=== PATIENT | female | born 1940 | race Caucasian/White ===

== ENCOUNTER 2017-03-08 12:27 | Emergency (ER) | payer MEDICARE, BC ==
[2017-03-08] MEDS ORDERED: ACETAMINOPHEN TAB 325 MG TAB PO STA (12:41)
--- NOTE | 2017-03-08 12:46 | ED ---
Fall HPI <Cr Austin - Last Filed: 03/08/17 14:40> - General Source: patient Mode of arrival: wheelchair <Lisa Alexandra - Last Filed: 03/08/17 16:28> - General Chief Complaint: Fall Stated Complaint: Fall/Wrist Injury Time Seen by Provider: 03/08/17 12:35 - History of Present Illness Initial Comments: 76-year-old female patient presents to the emergency department today for evaluation of right wrist injury after a slip and fall accident. Patient states around 9:30 this morning she was putting her groceries in the trunk when she slipped on the ice and fell forward on her outstretched hand. Patient states that since then she has been having pain and swelling to the right wrist. She states she did take an aspirin for pain this morning however has not helped very much. She denies hitting her head or losing consciousness with the fall. She denies any neck or back pain. She denies any other injuries. She denies any use of anticoagulant medications. Patient denies any headache, chest pain, shortness of breath, dizziness, weakness, abdominal pain, nausea, vomiting, or difficulties with bowel movements or urination. Patient is right- handed. (Lisa Alexandra) - Related Data Home Medications Medication Instructions Recorded Confirmed Atorvastatin [Lipitor] 10 mg PO DAILY 03/08/17 03/08/17 Previous Rx's Medication Instructions Recorded Acetaminophen-Codeine 300-30mg 1 tab PO Q6H PRN #20 tablet 03/08/17 [Tylenol #3] Allergies Allergy/AdvReac Type Severity Reaction Status Date / Time No Known Allergies Allergy Verified 03/08/17 14:16 Review of Systems ROS Other: All systems not noted in ROS Statement are negative. <Cr Austin - Last Filed: 03/08/17 14:40> ROS Other: All systems not noted in ROS Statement are negative. <Lisa Alexandra - Last Filed: 03/08/17 16:28> ROS Statement: Those systems with pertinent positive or pertinent negative responses have been documented in the HPI. Past Medical History Past Medical History: Hyperlipidemia History of Any Multi-Drug Resistant Organisms: None Reported Past Surgical History: Hysterectomy Past Psychological History: No Psychological Hx Reported Smoking Status: Current every day smoker Past Alcohol Use History: None Reported Past Drug Use History: None Reported <IbrahimaLisa M - Last Filed: 03/08/17 16:28> General Exam Limitations: no limitations General appearance: alert, in no apparent distress, other (This is a well- developed, well-nourished elderly female patient in no acute distress. Vital signs upon presentation were temperature 97.0F, pulse 73, respirations 18, blood pressure 102/56, pulse ox 98% on room air.) Head exam: Present: atraumatic, normocephalic, normal inspection Eye exam: Present: normal appearance, PERRL, EOMI. Absent: scleral icterus, conjunctival injection, nystagmus, periorbital swelling ENT exam: Present: normal exam, normal oropharynx, mucous membranes moist Neck exam: Present: normal inspection, full ROM, other (Nontender, no step-off, no deformity to firm midline palpation of the posterior cervical spine. Full range of motion without pain or limitation.). Absent: tenderness, meningismus, lymphadenopathy Respiratory exam: Present: normal lung sounds bilaterally. Absent: respiratory distress, wheezes, rales, rhonchi, stridor Cardiovascular Exam: Present: regular rate, normal rhythm, normal heart sounds, other (Murmur). Absent: systolic murmur, diastolic murmur, rubs, gallop, clicks GI/Abdominal exam: Present: soft, normal bowel sounds. Absent: distended, tenderness, guarding, rebound, rigid Extremities exam: Present: tenderness (Tenderness over the medial and lateral aspects of the right wrist. Tenderness over AC joint and the right shoulder.), normal capillary refill, joint swelling (Right wrist swelling), other (There is swelling and mild deformity of the right wrist. Skin to the right upper extremity is pink, warm, and dry. Cap refills less than 3 seconds. Radial pulses 2+ and equal bilaterally.). Absent: normal inspection, full ROM ( Decreased range of motion of the right wrist due to increased pain with movement. Full range of motion of the right elbow intact. Full range of motion of the right shoulder intact.), pedal edema, calf tenderness Back exam: Present: normal inspection, other (Nontender, no step-off, no deformity to firm midline palpation of the thoracic and lumbar vertebrae. Full range of motion without pain or limitation.). Absent: vertebral tenderness Neurological exam: Present: alert, oriented X3, CN II-XII intact Psychiatric exam: Present: normal affect, normal mood Skin exam: Present: warm, dry, intact, normal color. Absent: rash <Lisa Alexandra - Last Filed: 03/08/17 16:28> Vital Signs 03/08/17 03/08/17 03/08/17 12:27 14:30 14:45 Temperature 97.0 F L Pulse Rate 73 85 83 Respiratory 18 20 20 Rate Blood Pressure 102/56 155/70 144/69 O2 Sat by Pulse 98 100 100 Oximetry 03/08/17 03/08/17 15:00 15:35 Temperature 97.8 F Pulse Rate 82 85 Respiratory 18 18 Rate Blood Pressure 149/67 145/68 O2 Sat by Pulse 99 98 Oximetry Procedures - Orthopedic Fracture Reduction Fracture #1 Consent Obtained: written consent Time Out Performed: Yes Side: right Fracture Reduction Location: radius Analgesia: procedural sedation Technique: traction/counter-traction Post Reduction X-rays Demonstrate: anatomical reduction Post-Reduction Neuro Exam: intact Post-Reduction Vascular Exam: intact Splint Applied: Yes Patient Tolerated Procedure: well - Orthopedic Splinting/Casting Injury #1 Side: right Upper Extremity Injury Location: short arm, wrist Upper Extremity Immobilizer: volar splint, synthetic pre-padded splint - Procedural Sedation Procedural Sedation Start Time: 14:25 Procedural Sedation Stop Time: 14:50 Indications: fracture/dislocation reduction ASA Class: I Preparation: cardiac surgeon applied, pulse oximeter, supplemental O2 applied IV Etomidate Dose (mgs): 10 Complications: none Interventions: oxygen applied Patient Tolerated Procedure: well <Cr Austin - Last Filed: 03/08/17 14:40> Medical Decision Making <Cr Austin - Last Filed: 03/08/17 14:40> - Radiology Data Radiology results: report reviewed, image reviewed <Lisa Alexandra - Last Filed: 03/08/17 16:28> - Medical Decision Making 76-year-old female patient presented to the emergency department today for evaluation of right wrist pain after a open fall accident. Physical examination revealed mild deformity and swelling to the right wrist. Patient is also complaining of some right shoulder discomfort. Distal pulses are intact. Neurovascular status intact. Patient denied any head neck or back pain , and was neurologically intact. She denied use of anticoagulants. X-ray of the right wrist did show a comminuted intra-articular fracture of the distal radius with some displacement of the ulna. I did call and speak to Jaiden at [facility] who instructed us to perform closed reduction of the wrist and to have her follow-up in the office next week. X-ray of the right shoulder was negative. Conscious sedation with closed reduction was performed. Repeat x-rays show good alignment and positioning. Patient tolerated the procedure well. She'll be discharged home at this time with pain medication. Instructions regarding splint care. Instructions regarding icing and elevation. She is instructed to follow-up with orthopedics as soon as possible. She is instructed to return here immediately for any new, worsening, or concerning symptoms. She verbalizes understanding and agrees with this plan. (Lisa Alexandra) - Radiology Data 3 views of the right wrist are obtained and show the osseous structures are demineralized as noted to lower radiographic sensitivity. There is acute comminuted impacted intra-articular fracture distal radial epiphysis. There is abnormal dorsal angulation of the distal fracture fragments. Adjacent ulna shows no additional fracture. Positive ulnar variance is present. There is joint space loss scapholunate joint and trapezoid as well as the base of the first metacarpal with sclerosis. Moderate soft tissue swelling along the radial and volar surfaces noted. Impression by Dr. Huntley shows acute slightly displaced intra-articular comminuted fracture distal radial medical epiphysis. 3 views of the right shoulder obtained and showed no acute fracture dislocation evident. Osseous structures are demineralized. Bursal and capsular calcification acromioclavicular joint is present. Subchondral cystic change superolateral humeral head as noted. The visualized ribs are intact unremarkable. Impression by Dr. Huntley shows no acute fracture dislocation right shoulder. 2 views of the right wrist are obtained for postreduction imaging. There is demineralization redemonstrated. Cast material seen which is noted to lower radiographic sensitivity. There is improved alignment after closed reduction of distal radial med epiphyseal intra-articular fracture. There is improved alignment of the radial ulnar joint after reduction and casting. Soft tissue swelling redemonstrated. Impression by Dr. Huntley shows improved positioning after reduction and casting. (Lisa Alexandra) Disposition <Cr Austin - Last Filed: 03/08/17 14:40> Time of Disposition: 15:18 <Lisa Alexandra - Last Filed: 03/08/17 16:28> Clinical Impression: Fracture of radius, distal, right, closed Disposition: HOME SELF-CARE Condition: Good Instructions: Wrist Fracture in Adults (ED), Procedural Sedation (ED) Additional Instructions: Keep splint in place until follow-up with orthopedics. Rest, ice, and elevate the right arm. Take medications as needed for pain control. Follow-up with the orthopedic physician as soon as possible. Return here immediately for any new, worsening, or concerning symptoms. Prescriptions: Acetaminophen-Codeine 300-30mg [Tylenol #3] 1 tab PO Q6H PRN #20 tablet PRN Reason: Pain Referrals: Verito Middleton III, MD [Primary Care Provider] - 1-2 days Abhi Garland MD [STAFF PHYSICIAN] - 1-2 days
--- NOTE | 2017-03-08 13:16 | XR ---
EXAMINATION TYPE: XR shoulder complete RT DATE OF EXAM: 03/08/2017 CLINICAL HISTORY: Right shoulder pain after fall injury this morning. TECHNIQUE: Three views of the right shoulder are obtained. COMPARISON: None. FINDINGS: There is no acute fracture/dislocation evident in the right shoulder. Osseous structures a re demineralized. Bursal or capsular calcification acromioclavicular joint is present. Subchondral c ystic change superolateral humeral head is noted. The visualized ribs are intact and unremarkable. IMPRESSION: There is no acute fracture or dislocation in the right shoulder.
--- NOTE | 2017-03-08 13:18 | XR ---
EXAMINATION TYPE: XR wrist complete RT DATE OF EXAM: 03/08/2017 CLINICAL HISTORY: Fall injury with right wrist pain. TECHNIQUE: Frontal, lateral and oblique images of the right wrist are obtained. COMPARISON: None FINDINGS: Osseous structures are demineralized which is noted to lower radiographic sensitivity. Ther e is acute comminuted impacted intra-articular fracture distal radial meta-epiphysis. There is abnorm al dorsal angulation of distal fracture fragments. Adjacent ulna shows no additional fracture. Positi ve ulnar variance is present. There is joint space loss scapholunate joint and days of trapezoid as w ell as base of first metacarpal with sclerosis. Moderate soft tissue swelling along radial and volar surfaces noted. IMPRESSION: There is acute slightly displaced intra-articular comminuted fracture distal radial meta -epiphysis. (Initial encounter closed type post traumatic fracture)
[2017-03-08] MEDS ORDERED: ETOMIDATE 2 MG/ML 10 ML VIAL IVP STA (14:00)
--- NOTE | 2017-03-08 14:50 | XR ---
EXAMINATION TYPE: XR wrist limited RT DATE OF EXAM: 03/08/2017 CLINICAL HISTORY: Postreduction of displaced right wrist fracture. TECHNIQUE: Frontal and lateral images of the right wrist are obtained. COMPARISON: Right wrist x-ray earlier today. FINDINGS: There is demineralization redemonstrated. New fiberglass cast material is seen which is no margie lower radiographic sensitivity. There is improved alignment after closed reduction internal fixat ion of distal radial meta-epiphyseal intra-articular fracture. There is improved alignment radial uln ar joint after reduction and casting. Soft tissue swelling redemonstrated. IMPRESSION: There is improved positioning after reduction and casting.
[2017-03-08 15:03] VITALS: RESP 18
[2017-03-08] MEDS ORDERED: MORPHINE SULFATE 5 MG/ML SYRINGE IVP STA (15:03)
[2017-03-08 15:39] VITALS: BP 145/68; PULSE 85; TEMP 97.8
== END 2017-03-08 15:41 | disposition home or self-care (01) ==
LOC: EC 12:27
DX: S52.501A Unspecified fracture of the lower end of right radius, initial encounter for closed fracture (principal); S63.074A Dislocation of distal end of right ulna, initial encounter; M25.811 Other specified joint disorders, right shoulder; M25.841 Other specified joint disorders, right hand; M94.8X8 Other specified disorders of cartilage, other site; E78.5 Hyperlipidemia, unspecified; F17.200 Nicotine dependence, unspecified, uncomplicated; Z79.899 Other long term (current) drug therapy; W00.0XXA Fall on same level due to ice and snow, initial encounter; Y93.89 Activity, other specified
CPT/HCPCS: 73030; 73100; 73110; 99283; 25605; 99152; 99153; 96374; J2274

== ENCOUNTER 2018-01-27 21:00 | Inpatient (IN) | payer MEDICARE, BC ==
[2018-01-27] MEDS ORDERED: SODIUM CHLORIDE 0.9% 1,000 ML IV STA ×2 (21:47→22:33)
--- NOTE | 2018-01-27 21:47 | ED ---
General Adult HPI - General Chief complaint: Weakness Stated complaint: POSS STROKE Source: patient, family Mode of arrival: wheelchair Limitations: no limitations - History of Present Illness Initial comments: Dictation was produced using [employer] dictation software. please excuse any grammatical, word or spelling errors. Chief Complaint: 77-year-old female presents with multiple episodes of syncope. History of Present Illness: 77-year-old female with past medical history right carotid endarterectomy and carotid stenosis presents with multiple episodes of syncope in the last 2-3 days. Patient is accompanied by family member who states that she had a proximally 5 episodes of syncope. Patient denies any head trauma. Patient states that she syncopized is when she stands. Patient denies any medications except for Lipitor which her primary care physician prescribes her. Patient denies any neurologic deficits at this time. States that she was fine when at rest however she gets up she becomes symptomatic. She does state she feels slightly lightheaded before these episodes of syncope. The ROS documented in this emergency department record has been reviewed and confirmed by me. Those systems with pertinent positive or negative responses have been documented in the HPI. All other systems are other negative and/or noncontributory. - Related Data Home Medications Medication Instructions Recorded Confirmed Atorvastatin [Lipitor] 10 mg PO DAILY 03/08/17 01/27/18 Allergies Allergy/AdvReac Type Severity Reaction Status Date / Time No Known Allergies Allergy Verified 01/27/18 22:13 Review of Systems ROS Statement: Those systems with pertinent positive or pertinent negative responses have been documented in the HPI. ROS Other: All systems not noted in ROS Statement are negative. Past Medical History Past Medical History: Hyperlipidemia History of Any Multi-Drug Resistant Organisms: None Reported Past Surgical History: Hysterectomy Past Psychological History: No Psychological Hx Reported Smoking Status: Current every day smoker Past Alcohol Use History: None Reported Past Drug Use History: None Reported General Exam - General Exam Comments Initial Comments: PHYSICAL EXAM: General Impression: Alert and oriented x3, not in acute distress HEENT: Normocephalic atraumatic, extra-ocular movements intact, pupils equal and reactive to light bilaterally, mucous membranes moist. Cardiovascular: Heart regular rate and rhythm, S1&S2 audible, no murmurs, rubs or gallops Chest: Lungs clear to auscultation bilaterally, no rhonchi, no wheeze, no rales Abdomen: Bowel sounds present, abdomen soft, non-tender, non-distended, no organomegaly Musculoskeletal: Pulses present and equal in all extremities, no peripheral edema Motor: Power 5/5 bilaterally, no focal deficits noted Neurological: CN II-XII grossly intact, no focal motor or sensory deficits noted Skin: Intact with no visualized rashes Psych: Normal affect and mood Limitations: no limitations Course Vital Signs 01/27/18 01/27/18 21:03 23:23 Temperature 97.9 F 97.9 F Pulse Rate 83 85 Respiratory 18 18 Rate Blood Pressure 76/45 99/60 O2 Sat by Pulse 92 L 98 Oximetry Medical Decision Making - Medical Decision Making ED course: 89-year-old female with past medical history of carotid stenosis. She had carotid endarterectomy on the right side. She states she does have history of disease on the left carotid artery. Vital signs upon arrival shows blood pressure 76/45. Patient's blood pressure improved after intravenous fluids.Laboratory evaluation obtained. It is leukocytosis of 24.0. Hemoglobin of 7.1, thrombocytosis of 619. Coag panel is unremarkable. Metabolic panel shows lactic acidosis of 2.6. Rest of metabolic panel is grossly unremarkable. Patient has troponin level of 0.069. Urinalysis is negative. At this point patient not have any complaints to suggest infectious etiology. Given episodes of syncope patient's leukocytosis may be secondary to stress. There is strong suspicion that patient experience tachycardia dysrhythmia causing syncope. Given elevated troponin patient started on heparin. Patient given 1 g of magnesium for prolonged QT however she did have normal magnesium level. Rest of the electrolytes were unremarkable. Pending blood cultures and urine cultures. At this point there is no clear indication for antibiotic administration. We'll admit patient to telemetry. At this point there is no clear etiology of patient's prolonged QT. Patient is not hypomagnesemic. She is not on any QT prolonging medications. We will place cardiology on consult. EKG interpretation: Ventricular rate 95 months sinus rhythm with sinus arrhythmia, PA interval 140, care is 72, QTc 507. No PA prolongation, no QTC prolongation, no ST or T-wave changes noted. Overall, this EKG is unremarkable - Lab Data Result diagrams: 01/27/18 21:45 01/27/18 21:45 Lab Results 01/27/18 01/27/18 01/27/18 Range/Units 21:45 21:45 21:45 WBC 24.0 H (3.8-10.6) k/uL RBC 3.26 L (3.80-5.40) m/uL Hgb 7.1 L (11.4-16.0) gm/dL Hct 22.8 L (34.0-46.0) % MCV 69.8 L (80.0-100.0) fL MCH 21.9 L (25.0-35.0) pg MCHC 31.4 (31.0-37.0) g/dL RDW 16.1 H (11.5-15.5) % Plt Count 619 H (150-450) k/uL Neutrophils % 92 % Lymphocytes % 4 % Monocytes % 3 % Eosinophils % 0 % Basophils % 0 % Neutrophils # 22.1 H (1.3-7.7) k/uL Lymphocytes # 0.8 L (1.0-4.8) k/uL Monocytes # 0.8 (0-1.0) k/uL Eosinophils # 0.1 (0-0.7) k/uL Basophils # 0.0 (0-0.2) k/uL Hypochromasia Moderate Anisocytosis Slight Microcytosis Marked PT (9.0-12.0) sec INR (<1.2) APTT (22.0-30.0) sec Sodium 134 L (137-145) mmol/L Potassium 4.7 (3.5-5.1) mmol/L Chloride 100 (98-107) mmol/L Carbon Dioxide 19 L (22-30) mmol/L Anion Gap 15 mmol/L BUN 70 H (7-17) mg/dL Creatinine 1.00 (0.52-1.04) mg/dL Est GFR (CKD-EPI)AfAm 62 (>60 ml/min/1.73 sqM) Est GFR (CKD-EPI)NonAf 54 (>60 ml/min/1.73 sqM) Glucose 201 H (74-99) mg/dL Plasma Lactic Acid Sarbjit (0.7-2.0) mmol/L Calcium 9.8 (8.4-10.2) mg/dL Magnesium 2.4 H (1.6-2.3) mg/dL Total Bilirubin 0.9 (0.2-1.3) mg/dL AST 24 (14-36) U/L ALT 29 (9-52) U/L Alkaline Phosphatase 107 (38-126) U/L Total Creatine Kinase 153 H (30-135) U/L CK-MB (CK-2) 5.2 H (0.0-2.4) ng/mL CK-MB (CK-2) Rel Index 3.4 Troponin I 0.069 H* (0.000-0.034) ng/mL Total Protein 6.5 (6.3-8.2) g/dL Albumin 3.5 (3.5-5.0) g/dL Urine Color Urine Appearance (Clear) Urine pH (5.0-8.0) Ur Specific Trinity (1.001-1.035) Urine Protein (Negative) Urine Glucose (UA) (Negative) Urine Ketones (Negative) Urine Blood (Negative) Urine Nitrite (Negative) Urine Bilirubin (Negative) Urine Urobilinogen (<2.0) mg/dL Ur Leukocyte Esterase (Negative) 01/27/18 01/27/18 01/27/18 Range/Units 21:45 21:45 23:31 WBC (3.8-10.6) k/uL RBC (3.80-5.40) m/uL Hgb (11.4-16.0) gm/dL Hct (34.0-46.0) % MCV (80.0-100.0) fL MCH (25.0-35.0) pg MCHC (31.0-37.0) g/dL RDW (11.5-15.5) % Plt Count (150-450) k/uL Neutrophils % % Lymphocytes % % Monocytes % % Eosinophils % % Basophils % % Neutrophils # (1.3-7.7) k/uL Lymphocytes # (1.0-4.8) k/uL Monocytes # (0-1.0) k/uL Eosinophils # (0-0.7) k/uL Basophils # (0-0.2) k/uL Hypochromasia Anisocytosis Microcytosis PT 10.2 (9.0-12.0) sec INR 1.0 (<1.2) APTT 25.6 (22.0-30.0) sec Sodium (137-145) mmol/L Potassium (3.5-5.1) mmol/L Chloride (98-107) mmol/L Carbon Dioxide (22-30) mmol/L Anion Gap mmol/L BUN (7-17) mg/dL Creatinine (0.52-1.04) mg/dL Est GFR (CKD-EPI)AfAm (>60 ml/min/1.73 sqM) Est GFR (CKD-EPI)NonAf (>60 ml/min/1.73 sqM) Glucose (74-99) mg/dL Plasma Lactic Acid Sarbjit 2.6 H* (0.7-2.0) mmol/L Calcium (8.4-10.2) mg/dL Magnesium (1.6-2.3) mg/dL Total Bilirubin (0.2-1.3) mg/dL AST (14-36) U/L ALT (9-52) U/L Alkaline Phosphatase (38-126) U/L Total Creatine Kinase (30-135) U/L CK-MB (CK-2) (0.0-2.4) ng/mL CK-MB (CK-2) Rel Index Troponin I (0.000-0.034) ng/mL Total Protein (6.3-8.2) g/dL Albumin (3.5-5.0) g/dL Urine Color Light Yellow Urine Appearance Clear (Clear) Urine pH 5.0 (5.0-8.0) Ur Specific Trinity 1.015 (1.001-1.035) Urine Protein Trace H (Negative) Urine Glucose (UA) Negative (Negative) Urine Ketones Negative (Negative) Urine Blood Negative (Negative) Urine Nitrite Negative (Negative) Urine Bilirubin Negative (Negative) Urine Urobilinogen <2.0 (<2.0) mg/dL Ur Leukocyte Esterase Negative (Negative) Disposition Clinical Impression: Syncope and collapse Disposition: ADMITTED IP TO THIS HOSP Condition: Fair Referrals: Verito Middleton III, MD [Primary Care Provider] - 1-2 days Decision Time: 00:16
[2018-01-27 22:03] LABS: Anisocytosis Slight; Basophils % (A) 0 %; Eosinophils # (A) 0.1 k/uL (0-0.7); Eosinophils % (A) 0 %; HCT 22.8 % (34.0-46.0); HGB 7.1 gm/dL (11.4-16.0); Hypochromasia Moderate; Lymphocytes # (A) 0.8 k/uL (1.0-4.8); Lymphocytes % (A) 4 %; MCH 21.9 pg (25.0-35.0); MCHC 31.4 g/dL (31.0-37.0); MCV 69.8 fL (80.0-100.0); Microcytosis Marked; Monocytes # (A) 0.8 k/uL (0-1.0); Monocytes % (A) 3 %; Neutrophils # (A) 22.1 k/uL (1.3-7.7); Neutrophils % (A) 92 %; Platelet Count 619 k/uL (150-450); RBC 3.26 m/uL (3.80-5.40); RDW 16.1 % (11.5-15.5)
[2018-01-27 22:15] LABS: Partial Thromboplastin Time 25.6 sec (22.0-30.0); Prothrombin Time 10.2 sec (9.0-12.0)
[2018-01-27 22:18] LABS: Albumin 3.5 g/dL (3.5-5.0); Calcium 9.8 mg/dL (8.4-10.2); Magnesium 2.4 mg/dL (1.6-2.3); Potassium 4.7 mmol/L (3.5-5.1); Total Bilirubin 0.9 mg/dL (0.2-1.3); Total Protein 6.5 g/dL (6.3-8.2)
--- NOTE | 2018-01-27 22:23 | CT ---
EXAMINATION TYPE: CT brain wo con DATE OF EXAM: 01/27/2018 COMPARISON: 06/22/2010 HISTORY: Altered mental status. CT DLP: 1167.4 mGycm Automated exposure control for dose reduction was used. FINDINGS: There are fluid levels in the maxillary sinuses. There is cerebral cortical atrophy. There is no mass effect nor midline shift. There is no sign of intracranial hemorrhage. Calvarium is intact. There is minimal hypodensity in the periventricular white matter. IMPRESSION: CEREBRAL ATROPHY. NO ACUTE INTRACRANIAL ABNORMALITY. OVERALL NO ADVERSE CHANGE COMPARED TO OLD EXAM.
[2018-01-27 22:33] LABS: Creatine Kinase MB 5.2 ng/mL (0.0-2.4)
--- NOTE | 2018-01-27 22:33 | XR ---
EXAMINATION TYPE: XR chest 2V DATE OF EXAM: 01/27/2018 COMPARISON: NONE HISTORY: Weakness TECHNIQUE: Frontal and lateral views of the chest are obtained. FINDINGS: Heart is normal. Lungs are clear of consolidation. There is hiatal hernia. There is no hea rt failure. Thoracic aorta is atheromatous. There is no pleural effusion. Bones are osteopenic. IMPRESSION: Hiatal hernia. No active cardiopulmonary disease. No significant change.
[2018-01-27 22:39] LABS: Troponin I 0.069 ng/mL (0.000-0.034)
[2018-01-27] MEDS: MAGNESIUM SULFATE-D5W PMX 1 GM in DEXTROSE/WATER 1 100ML.BAG IVPB SCH (22:41)
[2018-01-28 00:06] LABS: Appearance,Urine Clear (Clear); Bilirubin,Urine Negative (Negative); Blood,Urine Negative (Negative); Color,Urine Light Yellow; Glucose,Urine (UA) Negative (Negative); Ketones,Urine Negative (Negative); Leukocyte Esterase,Urine Negative (Negative); Nitrite,Urine Negative (Negative); Protein,Urine Trace (Negative); Specific Gravity,Urine 1.015 (1.001-1.035); Urobilinogen,Urine <2.0 mg/dL (<2.0)
[2018-01-28] MEDS ORDERED: HEPARIN SODIUM,PORCINE 5,000 UNIT/ML 1 ML VIAL IV ONE (00:11)
[2018-01-28] MEDS ORDERED: HEPARIN SODIUM,PORCINE 5,000 UNIT/ML 1 ML VIAL IV PRN (00:11)
[2018-01-28] MEDS ORDERED: HEPARIN SOD,PORK IN 0.45% NACL 25,000 UNIT in 0.45% NACL 1 500ML.BAG IV SCH (00:15)
[2018-01-28] MEDS ORDERED: NALOXONE 0.4 MG/ML 1 ML VIAL IV PRN (00:16)
[2018-01-28] MEDS: MAGNESIUM SULFATE-D5W PMX 1 GM in DEXTROSE/WATER 1 100ML.BAG IVPB SCH (00:43)
--- NOTE | 2018-01-28 03:20 | XR ---
EXAMINATION TYPE: XR chest 1V portable DATE OF EXAM: 01/28/2018 COMPARISON: Yesterday HISTORY: Weakness. Short of breath TECHNIQUE: Single frontal view of the chest is obtained. FINDINGS: There is a large hiatal hernia. There is no heart failure. There is no pulmonary consolida tion. Thoracic aorta is atheromatous. There are chest leads. IMPRESSION: No active cardiopulmonary disease. Hiatal hernia. No change compared to yesterday.
[2018-01-28 03:59] LABS: Anisocytosis Slight; Basophils % (A) 0 %; Eosinophils % (A) 0 %; Hypochromasia Marked; Lymphocytes % (A) 6 %; MCH 22.6 pg (25.0-35.0); MCHC 31.3 g/dL (31.0-37.0); MCV 72.2 fL (80.0-100.0); Mean Platelet Volume 7.2; Microcytosis Moderate; Monocytes % (A) 5 %; Neutrophils # (A) 16.3 k/uL (1.3-7.7); Neutrophils % (A) 87 %; Platelet Count 512 k/uL (150-450); RBC 2.15 m/uL (3.80-5.40); RDW 16.1 % (11.5-15.5); WBC 18.7 k/uL (3.8-10.6)
[2018-01-28 04:06] LABS: HCT 15.5 % (34.0-46.0)
[2018-01-28 04:07] LABS: HGB 4.9 gm/dL (11.4-16.0)
[2018-01-28 08:09] LABS: Glucose,Whole Blood 163 mg/dL (75-99)
[2018-01-28] MEDS ORDERED: PANTOPRAZOLE 40 MG/10 ML VIAL IVP SCH (09:15)
[2018-01-28 09:21] VITALS: BMI 23.1
[2018-01-28 09:24] LABS: Albumin 2.4 g/dL (3.5-5.0); Calcium 7.9 mg/dL (8.4-10.2); Magnesium 3.1 mg/dL (1.6-2.3); Potassium 3.8 mmol/L (3.5-5.1); Total Bilirubin 0.3 mg/dL (0.2-1.3); Total Protein 5.2 g/dL (6.3-8.2)
[2018-01-28 09:49] LABS: INR 1.1 (<1.2); Prothrombin Time 10.3 sec (9.0-12.0)
[2018-01-28] MEDS ORDERED: BISACODYL 5 MG TABLET.DR PO STA (10:44)
--- NOTE | 2018-01-28 10:50 | P.CONS ---
History of Present Illness - Reason for Consult Consult date: 01/28/18 Anemia and GI bleeding Requesting physician: Ramón Rogers - Chief Complaint Syncope - History of Present Illness 77-year-old female admitted with multiple episodes of syncope lightheadedness over the last 3-4 days she has a past medical history of carotid stenosis endarterectomy, hyperlipidemia and nicotine cigarette dependency. Consult requested for possible GI bleed anemia. Admission hemoglobin 7.1. Received fluid bolus repeat CBC 4.9. Received 3 units of blood. MCV 69. Platelets 619. White count 24. INR 1.1. BUN 70. Creatinine 1.0. Lactic acid 2.1 with hydration 1.1. Troponin 0.06. Hemoccult stool positive. No evidence of active GI bleeding such as hematemesis hematochezia or melena. Patient denies history GI bleed or peptic ulcer disease. History of EGD colonoscopy in the past but performed "many many years ago". Denies weight loss or abdominal pain. Review of hemoglobin in September 2016 was 14.6. No aspirin and NSAIDs or antiplatelet medications. Review of Systems Constitutional: Denies fever, chills, sweats, weight gain, or loss. Minimal with lightheadedness syncopal-type symptoms. HEENT: Negative for migraines, blurred vision or loss, earaches, drainage, tinnitus, oral mucosal lesions, dysphagia, or odynophagia. CARDIAC: Negative for chest pain, arrhythmias, or palpitation. RESPIRATORY: Negative for shortness of breath, hemoptysis, cough, or sputum production. GI: See HPI for pertinent findings. : Negative for hematuria, urgency, frequency, polyuria, or dysuria. GYNc: Denies possibility of . Negative vaginal discharge. MUSCULOSKELETAL: Negative for muscle aches, swelling, arthritis, and arthralgias. NEUROLOGIC: Negative for stroke or TIA. ENDOCRINE: Negative for thyroid problems. SKIN: Negative for rash or itching. PSYCHIATRIC: Negative history for depression and anxiety Past Medical History Past Medical History: Hyperlipidemia History of Any Multi-Drug Resistant Organisms: None Reported Past Surgical History: Hysterectomy Additional Past Surgical History / Comment(s): carotid endarterectomy Past Anesthesia/Blood Transfusion Reactions: No Reported Reaction Past Psychological History: No Psychological Hx Reported Smoking Status: Current every day smoker Past Alcohol Use History: None Reported Past Drug Use History: None Reported Medications and Allergies Home Medications Medication Instructions Recorded Confirmed Type Atorvastatin [Lipitor] 10 mg PO DAILY 03/08/17 01/27/18 History Allergies Allergy/AdvReac Type Severity Reaction Status Date / Time No Known Allergies Allergy Verified 01/27/18 22:13 Physical Exam Vitals: Vital Signs Temp Pulse Pulse Resp BP BP Pulse Ox 01/28/18 10:04 99.1 F 87 16 114/53 99 01/28/18 09:30 99.1 F 91 25 H 114/53 98 01/28/18 08:47 98.4 F 88 16 103/61 99 01/28/18 07:12 98.4 F 93 18 106/65 100 01/28/18 07:00 98.4 F 93 18 101/58 99 01/28/18 06:37 98.4 F 95 18 82/20 95 01/28/18 05:57 99.0 F 93 18 96/55 100 01/28/18 05:39 98.9 F 97 18 85/50 95 01/28/18 05:26 98.9 F 96 18 98/54 100 01/28/18 05:09 98.7 F 93 18 101/51 100 01/28/18 04:59 98.5 F 95 18 89/61 95 01/28/18 04:57 98.3 F 90 18 97/58 97 01/28/18 04:25 92 19 99/52 95 01/28/18 03:38 94 201 H 115/62 100 01/28/18 03:10 101 H 20 110/60 95 01/28/18 02:44 100 24 56/21 95 01/28/18 02:40 74/45 01/28/18 02:20 96 18 111/76 95 01/28/18 01:21 95 18 104/52 91 L 01/28/18 00:26 88 17 119/55 95 01/27/18 23:23 97.9 F 85 18 99/60 98 01/27/18 21:03 97.9 F 83 18 76/45 92 L Intake and Output 01/27/18 01/28/18 01/28/18 22:59 06:59 14:59 Intake Total 0 620 Balance 0 620 Intake: Blood Product 0 620 Rc As-1 Unit 310 [id number] Rc As-1 Unit 0 310 [id number] Rc As-1 Unit 0 [id number] Other: # Voids 4 Weight 49.895 kg 53.6 kg General appearance: The patient is alert, oriented, in no acute distress. HET: Head is normocephalic and atraumatic. Pupils are equal and reactive. Oropharynx is clear without lesions. Neck: Supple without lymphadenopathy. Trachea midline. Heart: S1 S2. Regular rate and rhythm. Lungs: No crackles or wheezes are heard. Abdomen: Soft, nontender, nondistended with bowel sounds. No peritoneal signs. No palpable organomegaly or masses. Extremities: Normal skin color and turgor. No cyanosis, rash, ulceration, clubbing, or edema. Radial and pedal pulses are 2/4 bilaterally. Neurological: No focal deficits. Strength and sensation are grossly intact. Rectal: No palpable masses no obvious blood. Stool in rectal vault. Dark brown near black in color but not melanotic. Results CBC & Chem 7: 01/28/18 02:50 01/28/18 02:50 Labs: Abnormal Lab Results - Last 24 Hours (Table) 01/27/18 01/27/18 01/27/18 Range/Units 21:45 21:45 21:45 WBC 24.0 H (3.8-10.6) k/uL RBC 3.26 L (3.80-5.40) m/uL Hgb 7.1 L (11.4-16.0) gm/dL Hct 22.8 L (34.0-46.0) % MCV 69.8 L (80.0-100.0) fL MCH 21.9 L (25.0-35.0) pg RDW 16.1 H (11.5-15.5) % Plt Count 619 H (150-450) k/uL Neutrophils # 22.1 H (1.3-7.7) k/uL Lymphocytes # 0.8 L (1.0-4.8) k/uL Sodium 134 L (137-145) mmol/L Chloride (98-107) mmol/L Carbon Dioxide 19 L (22-30) mmol/L BUN 70 H (7-17) mg/dL Glucose 201 H (74-99) mg/dL POC Glucose (mg/dL) (75-99) mg/dL Plasma Lactic Acid Sarbjit (0.7-2.0) mmol/L Calcium (8.4-10.2) mg/dL Magnesium 2.4 H (1.6-2.3) mg/dL Total Creatine Kinase 153 H (30-135) U/L CK-MB (CK-2) 5.2 H (0.0-2.4) ng/mL Troponin I 0.069 H* (0.000-0.034) ng/mL Total Protein (6.3-8.2) g/dL Albumin (3.5-5.0) g/dL Urine Protein (Negative) Stool Occult Blood (Negative) Crossmatch 01/27/18 01/27/18 01/28/18 Range/Units 21:45 23:31 02:50 WBC (3.8-10.6) k/uL RBC (3.80-5.40) m/uL Hgb (11.4-16.0) gm/dL Hct (34.0-46.0) % MCV (80.0-100.0) fL MCH (25.0-35.0) pg RDW (11.5-15.5) % Plt Count (150-450) k/uL Neutrophils # (1.3-7.7) k/uL Lymphocytes # (1.0-4.8) k/uL Sodium (137-145) mmol/L Chloride (98-107) mmol/L Carbon Dioxide (22-30) mmol/L BUN (7-17) mg/dL Glucose (74-99) mg/dL POC Glucose (mg/dL) (75-99) mg/dL Plasma Lactic Acid Sarbjit 2.6 H* (0.7-2.0) mmol/L Calcium (8.4-10.2) mg/dL Magnesium (1.6-2.3) mg/dL Total Creatine Kinase (30-135) U/L CK-MB (CK-2) (0.0-2.4) ng/mL Troponin I (0.000-0.034) ng/mL Total Protein (6.3-8.2) g/dL Albumin (3.5-5.0) g/dL Urine Protein Trace H (Negative) Stool Occult Blood (Negative) Crossmatch See Detail 01/28/18 01/28/18 01/28/18 Range/Units 02:50 02:50 02:50 WBC 18.7 H (3.8-10.6) k/uL RBC 2.15 L (3.80-5.40) m/uL Hgb 4.9 L* D (11.4-16.0) gm/dL Hct 15.5 L* (34.0-46.0) % MCV 72.2 L (80.0-100.0) fL MCH 22.6 L (25.0-35.0) pg RDW 16.1 H (11.5-15.5) % Plt Count 512 H (150-450) k/uL Neutrophils # 16.3 H (1.3-7.7) k/uL Lymphocytes # (1.0-4.8) k/uL Sodium (137-145) mmol/L Chloride 111 H (98-107) mmol/L Carbon Dioxide 19 L (22-30) mmol/L BUN 51 H (7-17) mg/dL Glucose 157 H (74-99) mg/dL POC Glucose (mg/dL) (75-99) mg/dL Plasma Lactic Acid Sarbjit (0.7-2.0) mmol/L Calcium 7.9 L (8.4-10.2) mg/dL Magnesium 3.1 H (1.6-2.3) mg/dL Total Creatine Kinase (30-135) U/L CK-MB (CK-2) (0.0-2.4) ng/mL Troponin I 0.036 H* (0.000-0.034) ng/mL Total Protein 5.2 L (6.3-8.2) g/dL Albumin 2.4 L (3.5-5.0) g/dL Urine Protein (Negative) Stool Occult Blood (Negative) Crossmatch 01/28/18 01/28/18 01/28/18 Range/Units 02:58 07:57 09:25 WBC (3.8-10.6) k/uL RBC (3.80-5.40) m/uL Hgb (11.4-16.0) gm/dL Hct (34.0-46.0) % MCV (80.0-100.0) fL MCH (25.0-35.0) pg RDW (11.5-15.5) % Plt Count (150-450) k/uL Neutrophils # (1.3-7.7) k/uL Lymphocytes # (1.0-4.8) k/uL Sodium (137-145) mmol/L Chloride (98-107) mmol/L Carbon Dioxide (22-30) mmol/L BUN (7-17) mg/dL Glucose (74-99) mg/dL POC Glucose (mg/dL) 163 H (75-99) mg/dL Plasma Lactic Acid Sarbjit (0.7-2.0) mmol/L Calcium (8.4-10.2) mg/dL Magnesium 2.5 H (1.6-2.3) mg/dL Total Creatine Kinase (30-135) U/L CK-MB (CK-2) (0.0-2.4) ng/mL Troponin I (0.000-0.034) ng/mL Total Protein (6.3-8.2) g/dL Albumin (3.5-5.0) g/dL Urine Protein (Negative) Stool Occult Blood Positive H (Negative) Crossmatch Microbiology - Last 24 Hours (Table) 01/27/18 23:31 Urine Culture - Preliminary Urine,Catheterized Assessment and Plan (1) Symptomatic anemia Narrative/Plan: 77-year-old female presents with syncope lightheadedness for several days with evidence of microcytic anemia hemoglobin 7.1 decreased from 14 range September 2016 with positive Hemoccult but no obvious episodes of hematemesis hematochezia or melena. Possible upper GI bleed possible colonic source possible small bowel etiologies unclear at this time. Current Visit: Yes Status: Acute Code(s): D64.9 - ANEMIA, UNSPECIFIED SNOMED Code(s): 810572059 (2) Syncope and collapse Current Visit: Yes Status: Acute Code(s): R55 - SYNCOPE AND COLLAPSE SNOMED Code(s): 142281041 Plan: 1. Clear liquid diet. CBC 1 hour after third unit of blood is complete hold transfusion of fourth blood until CBC can be reviewed this afternoon. Protonix 40 mg IV daily. We'll start bowel prep this afternoon EGD colonoscopy possible small endoscopies scheduled for tomorrow. NOTHING BY MOUTH AFTER MIDNIGHT. Iron indices. The lehr stripper has discussed the risks, benefits and alternative therapies for the above-mentioned procedure and for both sedation/analgesia as well as necessary blood product administration, if indicated, as they pertain to this patient. The patient has indicated understanding and acceptance of the risks and procedures discussed. Thank you for this kind referral and the opportunity to participate in the care of your patient. This consultation was discussed with Dr. Murguia. The impression and plan of care have been directed as dictated.
--- NOTE | 2018-01-28 11:07 | CONS ---
CONSULTATION Mrs. Garcia is a 77-year-old female who is seen for the cardiac evaluation. The patient's medical records were reviewed, old emergency records reviewed. Please refer to the chart for any further details. Patient was admitted with multiple episodes of syncope for last 2 to 3 days. Patient denies any chest pain or palpitations, she does not have any warning. She denies any head trauma. Patient denies any definite history of blood in the stool or abdominal pain. The patient's initial hemoglobin was 7 g, which had dropped to 4.5 g. Patient denies any prior GI history. She did not had any recent colonoscopy. Patient has a past history of carotid end arterectomy. She is taking Lipitor. She is only taking aspirin p.r.n. There is no definite previous history of myocardial infarction or congestive cardiac failure, diabetes or hypertension. PAST MEDICAL HISTORY: Includes history of hysterectomy and carotid endarterectomy, history of hyperlipidemia, smoking history, patient is currently everyday smoker. HOME MEDICATIONS: Include Lipitor 10 mg daily. PHYSICAL EXAMINATION: At present reveals a 77-year-old female who is thinly built, does not appear to be in any acute distress. Patient's blood pressure now is 116/56 mmHg. Patient had some episode of hypotension in the emergency room. The lowest blood pressure recorded was 56/21. HEENT examination is negative. Neck is supple. There is no increase in jugular venous pressure. Both the carotid pulses are felt. There is a grade 2/6 ejection systolic murmur noted. Lungs are clinically clear to auscultation and percussion. Abdomen is soft. Liver and spleen are not enlarged. Bowel sounds are heard. Extremities, peripheral pulses are 2+. EKG shows normal sinus rhythm with a PAC's and those initial EKG's showed some prolonged QT interval. Patient received some magnesium sulfate in the emergency room. Patient's initial BUN was 70 and now subsequently is 51.4. FINAL IMPRESSION: 1. This patient is admitted with syncope which is most likely due to the hypotension and symptomatic anemia. Patient has a microcytic hypochromic anemia suggestive that she might have evidence of some chronic blood loss on the top of it. Patient might have suffered acute blood loss. 2. Patient has a minimal elevation in the troponin without any symptoms of cardiac ischemia. EKG does not show any evidence of ischemia and this may be represent non [place] related acute myocardial injury. We will obtain echo and Doppler study to rule out any evidence of wall motion abnormality. This is not suggestive of a type 1 myocardial infarction. We will put the patient on a small dose of metoprolol 12.5 mg b.i.d. and the repeat EKG. SHARON / ALYSSAN: [id number] /
--- NOTE | 2018-01-28 11:28 | P.CNPUL ---
History of Present Illness Consult date: 01/28/18 Requesting physician: Alvina Chang Reason for consult: other (Recurrent episodes of syncope and profound anemia) Chief complaint: Passing out History of present illness: This is a 77-year-old female with no major medical illnesses, except for his dyslipidemia. Patient presented to the ER last night with recurrent episodes of syncope and lightheadedness over the last 4 days. Patient had at least 4 episodes, not associated with any other symptoms. No headache, no nausea, no vomiting, no chest pain, no palpitations, no melena no hematemesis no dysuria and no frequency no urgency. Patient presented to the ER, and she was noted to be slightly anemic. And her blood pressure was borderline. Initial hemoglobin was 7.1. However after fluid boluses for low blood pressure, repeat hemoglobin was 4.9. Apparently the patient received in the meantime heparin for elevated troponin, and she may have sustained some acute on chronic episode of GI bleeding. Patient was given 2 units of blood, and she is yet to have 2 more units of blood presently while in the ICU, patient repeat hemoglobin is pending. However she is feeling better since the blood was given, and her labs were reviewed, she had a slightly elevated lactic acid, BUN was 70, creatinine 1.0. Initial lactic acid was 2.6, repeat lactic acid was 1.1. Troponin on admission was 0.069, repeat troponin was 0.036. Stool was positive for occult blood. Considering her symptoms, and considering the significantly low hemoglobin, and possible undergoing GI bleeding, patient was admitted to the ICU , and this consult was initiated. Review of Systems 14 point review of systems were obtained, please refer to pertinent positives in HPI, otherwise remaining systems are negative. Past Medical History Past Medical History: Hyperlipidemia History of Any Multi-Drug Resistant Organisms: None Reported Past Surgical History: Hysterectomy Additional Past Surgical History / Comment(s): carotid endarterectomy Past Anesthesia/Blood Transfusion Reactions: No Reported Reaction Past Psychological History: No Psychological Hx Reported Smoking Status: Current every day smoker Past Alcohol Use History: None Reported Past Drug Use History: None Reported Medications and Allergies Home Medications Medication Instructions Recorded Confirmed Type Atorvastatin [Lipitor] 10 mg PO DAILY 03/08/17 01/27/18 History Allergies Allergy/AdvReac Type Severity Reaction Status Date / Time No Known Allergies Allergy Verified 01/27/18 22:13 Physical Exam Vitals: Vital Signs Temp Pulse Pulse Resp BP BP Pulse Ox 01/28/18 10:44 98.1 F 87 16 125/71 01/28/18 10:14 99.8 F H 88 16 116/56 99 01/28/18 10:04 99.1 F 87 16 114/53 99 01/28/18 09:30 99.1 F 91 25 H 114/53 98 01/28/18 08:47 98.4 F 88 16 103/61 99 01/28/18 07:12 98.4 F 93 18 106/65 100 01/28/18 07:00 98.4 F 93 18 101/58 99 01/28/18 06:37 98.4 F 95 18 82/20 95 01/28/18 05:57 99.0 F 93 18 96/55 100 01/28/18 05:39 98.9 F 97 18 85/50 95 01/28/18 05:26 98.9 F 96 18 98/54 100 01/28/18 05:09 98.7 F 93 18 101/51 100 01/28/18 04:59 98.5 F 95 18 89/61 95 01/28/18 04:57 98.3 F 90 18 97/58 97 01/28/18 04:25 92 19 99/52 95 01/28/18 03:38 94 201 H 115/62 100 01/28/18 03:10 101 H 20 110/60 95 01/28/18 02:44 100 24 56/21 95 01/28/18 02:40 74/45 01/28/18 02:20 96 18 111/76 95 01/28/18 01:21 95 18 104/52 91 L 01/28/18 00:26 88 17 119/55 95 01/27/18 23:23 97.9 F 85 18 99/60 98 01/27/18 21:03 97.9 F 83 18 76/45 92 L Intake and Output 01/27/18 01/28/18 01/28/18 22:59 06:59 14:59 Intake Total 0 620 Balance 0 620 Intake: Blood Product 0 620 Rc As-1 Unit 310 [id number] Rc As-1 Unit 0 310 [id number] Rc As-1 Unit 0 [id number] Other: Voiding Method Indwelling Catheter # Voids 4 Weight 49.895 kg 53.6 kg Physical Exam: Revealed a 77-year-old female, pleasant, in no distress. Head:, Atraumatic normocephalic HEENT:[Neck is supple.] [No neck masses.] [No thyromegaly.] [No JVD.] Chest: [Clear throughout, no crackles, no rhonchi, no wheezes.] Cardiac Exam: [Normal S1 and S2, no S3 gallop, no murmur.] Abdomen: [Soft, nontender, no megaly, no rebound, no guarding, normal bowel sounds.] Extremities: [No clubbing, no edema, no cyanosis.] Neurological Exam: [No focal neurologic deficit.] Alert oriented 3. Psychiatric: Normal mood affect and mental status examination. Skin: No rashes. No ulcerations. No clubbing, no cyanosis. Results - Laboratory Findings CBC and BMP: 01/28/18 02:50 01/28/18 02:50 PT/INR, D-dimer PT 10.3 sec (9.0-12.0) 01/28/18 09:20 INR 1.1 (<1.2) 01/28/18 09:20 Abnormal lab findings: Abnormal Labs 01/27/18 01/27/18 01/27/18 21:45 21:45 21:45 WBC 24.0 H RBC 3.26 L Hgb 7.1 L Hct 22.8 L MCV 69.8 L MCH 21.9 L RDW 16.1 H Plt Count 619 H Neutrophils # 22.1 H Lymphocytes # 0.8 L Sodium 134 L Chloride Carbon Dioxide 19 L BUN 70 H Glucose 201 H POC Glucose (mg/dL) Plasma Lactic Acid Sarbjit Calcium Magnesium 2.4 H Total Creatine Kinase 153 H CK-MB (CK-2) 5.2 H Troponin I 0.069 H* Total Protein Albumin Urine Protein Stool Occult Blood Crossmatch 01/27/18 01/27/18 01/28/18 21:45 23:31 02:50 WBC RBC Hgb Hct MCV MCH RDW Plt Count Neutrophils # Lymphocytes # Sodium Chloride Carbon Dioxide BUN Glucose POC Glucose (mg/dL) Plasma Lactic Acid Sarbjit 2.6 H* Calcium Magnesium Total Creatine Kinase CK-MB (CK-2) Troponin I Total Protein Albumin Urine Protein Trace H Stool Occult Blood Crossmatch See Detail 01/28/18 01/28/18 01/28/18 02:50 02:50 02:50 WBC 18.7 H RBC 2.15 L Hgb 4.9 L* D Hct 15.5 L* MCV 72.2 L MCH 22.6 L RDW 16.1 H Plt Count 512 H Neutrophils # 16.3 H Lymphocytes # Sodium Chloride 111 H Carbon Dioxide 19 L BUN 51 H Glucose 157 H POC Glucose (mg/dL) Plasma Lactic Acid Sarbjit Calcium 7.9 L Magnesium 3.1 H Total Creatine Kinase CK-MB (CK-2) Troponin I 0.036 H* Total Protein 5.2 L Albumin 2.4 L Urine Protein Stool Occult Blood Crossmatch 01/28/18 01/28/18 01/28/18 02:58 07:57 09:25 WBC RBC Hgb Hct MCV MCH RDW Plt Count Neutrophils # Lymphocytes # Sodium Chloride Carbon Dioxide BUN Glucose POC Glucose (mg/dL) 163 H Plasma Lactic Acid Sarbjit Calcium Magnesium 2.5 H Total Creatine Kinase CK-MB (CK-2) Troponin I Total Protein Albumin Urine Protein Stool Occult Blood Positive H Crossmatch - Diagnostic Findings Chest x-ray: image reviewed (No evidence of acute cardiopulmonary process.) Assessment and Plan Assessment: Impression: 1 Recurrent episodes of syncope, most likely secondary to orthostatic hypotension, hypovolemia, and ongoing GI blood losses. 2 acute on chronic anemia secondary to GI blood losses, exacerbated mostly by receiving heparin in the emergency room. 3 elevated troponin, significance of which is not clear at this point, however patient is to be seen by cardiology. 4 history of dyslipidemia. Recommendation: Continue blood transfusion, patient is to receive a total of 4 units of packed RBCs, in the meantime I started the patient on Protonix, and consulted gastroenterology to evaluate for possible EGD and/or colonoscopy. Patient was monitored in the ICU while receiving blood transfusion and as long as she remains symptomatic. We'll continue to follow. Time with Patient: Greater than 30
[2018-01-28 14:46] LABS: Anisocytosis Slight; HCT 28.8 % (34.0-46.0); Hypochromasia Moderate; MCH 27.5 pg (25.0-35.0); MCHC 33.5 g/dL (31.0-37.0); Microcytosis Slight; Platelet Count 378 k/uL (150-450); Poikilocytosis Moderate; RBC 3.51 m/uL (3.80-5.40); RDW 17.5 % (11.5-15.5); WBC 15.2 k/uL (3.8-10.6)
[2018-01-28 14:51] LABS: HGB 9.7 gm/dL (11.4-16.0)
[2018-01-28 14:52] LABS: MCV 81.9 fL (80.0-100.0)
[2018-01-28] MEDS ORDERED: PEG 3350-NA SULF,BICARB,CL/KCL 4,000 ML BOTTLE PO ONE (15:00)
--- NOTE | 2018-01-28 19:07 | HP ---
HISTORY AND PHYSICAL DATE OF SERVICE: 01/28/2018 CHIEF COMPLAINT: Weakness. HISTORY OF PRESENT ILLNESS: This 77-year-old woman with a past medical history of multiple medical problems, including hyperlipidemia, history of carotid endarterectomy, carotid stenosis, history of nicotine dependence, being followed for Dr. Middleton in the outpatient setting, was complaining of weakness yesterday. The patient was taken to [facility] and was admitted for further evaluation and treatment. The patient also had recurrent episodes of lightheadedness, syncope. There is no history of any active obvious bleeding being noted. Initially stroke was suspected because of the patient's past medical history. The CT scan of the brain did not show any acute abnormality except some cerebral atrophy; however, the lab evaluation showed hemoglobin is 4.9. Stool OB was positive. The patient was transferred 3 units and gastroenterology evaluation has been sought. Troponin was 0.036. Patient has been admitted to the ICU at this time. There is no history of fever, rigors or chills, no history of headache, loss of consciousness, seizures at this time. PAST MEDICAL HISTORY: 1. History of hypertension. 2. History of carotid endarterectomy. 3. Carotid stenosis. 4. Hyperlipidemia. 5. Smoking. MEDICATIONS: Medications prior to admission include Lipitor 10 mg daily. ALLERGIES: NONE. FAMILY HISTORY: No history of heart disease or strokes in the family. SOCIAL HISTORY: History of smoking. No history of alcohol intake. REVIEW OF SYSTEMS: ENT: As mentioned earlier. CARDIOVASCULAR SYSTEM: No angina, palpitations. RESPIRATORY SYSTEM: No cough, hemoptysis. GI: As mentioned earlier. : No dysuria or retention. NERVOUS SYSTEM: As mentioned earlier. ALLERGY/IMMUNOLOGY: No asthma, hayfever. MUSCULOSKELETAL: As mentioned earlier. HEMATOLOGY/ONCOLOGY: As mentioned earlier. ENDOCRINE: No history of diabetes, hypothyroidism. CONSTITUTIONAL: As mentioned earlier. DERMATOLOGY: Negative. RHEUMATOLOGY: Negative. PSYCHIATRY: As mentioned earlier. PHYSICAL EXAMINATION: Patient is alert and oriented x3. Pulse 87, blood pressure 102/57, respirations 16, temperature normal, pulse ox 94% on room air. HEENT: Conjunctivae extremely pale. Oral mucosa moist. NECK: No jugular venous distention. No carotid bruit. No lymph node enlargement. CARDIOVASCULAR SYSTEM: S1, S2 muffled. No S3. No S4. RESPIRATORY SYSTEM: Breath sounds diminished at the bases. A few scattered rhonchi. No crackles. ABDOMEN: Soft, nontender. No mass palpable. LEGS: No edema. No swelling. NERVOUS SYSTEM: Higher functions as mentioned earlier. Moves all 4 limbs. Mild diffuse weakness. LYMPHATICS: No lymph node palpable in neck, axillae or groin. SKIN: No ulcer, rash, bleeding. LABS: WBC 18.7, hemoglobin 4.9, platelets 512. Sodium 137, potassium 3.8, glucose 157, magnesium 3.1, calcium 7.9. Stool OB is positive. Troponin 0.036. UA is unremarkable. The EKG shows QTc of 507; otherwise PVCs, ST-T changes. Chest x-ray also reviewed showed no acute abnormality. ASSESSMENT: 1. Syncope with possible severe anemia. Rule out acute on chronic GI bleed. 2. Hyperlipidemia. 3. History of carotid stenosis and carotid endarterectomy on the right side. 4. Increased white count for evaluation. 5. Microcytosis. 6. Hyponatremia. 7. Increased lactic acid, present on admission. 8. Troponin 0.069, indeterminate. RECOMMENDATIONS AND DISCUSSION: In this 77-year-old woman who presented with multiple complex medical issues, we will monitor the patient closely, continue symptomatic treatment. Otherwise at this time transfusion has been arranged. We will monitor the patient closely and repeat hemoglobin and hematocrit q.6. Monitor closely in ICU. Repeat labs. Gastroenterology has been consulted. Endoscopies will be arranged. Prognosis is guarded because of the multiple complex medical issues. Further recommendations to follow. A copy of this dictation is being forwarded to Dr. Middleton, who is the primary physician. MMDANIELEL / IJN: [id number] /
[2018-01-28 19:12] LABS: Iron Saturation 14.65 (12.00-45.00)
[2018-01-28] MEDS: METOPROLOL TARTRATE 12.5 MG TAB PO SCH (20:39)
[2018-01-28] MEDS ORDERED: NOREPINEPHRINE 4 MG in SODIUM CHLORIDE 0.9% 250 ML IV SCH (23:45)
[2018-01-29 05:00] LABS: Anisocytosis Slight; Basophils % (A) 0 %; Eosinophils % (A) 0 %; HCT 28.8 % (34.0-46.0); HGB 9.5 gm/dL (11.4-16.0); Hypochromasia Moderate; Lymphocytes # (A) 0.7 k/uL (1.0-4.8); Lymphocytes % (A) 7 %; MCH 26.7 pg (25.0-35.0); MCV 81.1 fL (80.0-100.0); Microcytosis Slight; Monocytes # (A) 0.6 k/uL (0-1.0); Monocytes % (A) 6 %; Neutrophils # (A) 9.5 k/uL (1.3-7.7); Neutrophils % (A) 85 %; Platelet Count 352 k/uL (150-450); Poikilocytosis Marked; RBC 3.56 m/uL (3.80-5.40); RDW 17.4 % (11.5-15.5); WBC 11.1 k/uL (3.8-10.6)
[2018-01-29 05:10] LABS: ALT 28 U/L (9-52); AST 24 U/L (14-36); Albumin 2.1 g/dL (3.5-5.0); Alkaline Phosphatase 66 U/L (38-126); Anion Gap 6 mmol/L; Blood Urea Nitrogen 18 mg/dL (7-17); Calcium 7.8 mg/dL (8.4-10.2); Carbon Dioxide 24 mmol/L (22-30); Chloride 109 mmol/L (98-107); Glucose 105 mg/dL (74-99); Magnesium 2.1 mg/dL (1.6-2.3); Phosphorus 2.1 mg/dL (2.5-4.5); Potassium 3.3 mmol/L (3.5-5.1); Sodium 139 mmol/L (137-145); Total Protein 4.4 g/dL (6.3-8.2)
[2018-01-29] MEDS ORDERED: Potassium Replacement Protocol 1 EACH MISC MISCELLANE PRN (06:21)
[2018-01-29] MEDS: POTASSIUM CHLORIDE 10 MEQ in WATER FOR INJECTION 1 100ML.BAG IVPB SCH ×4 (06:55→11:43)
--- NOTE | 2018-01-29 07:47 | P.PN ---
Subjective Progress Note Date: 01/29/18 Principal diagnosis: Recurrent episodes of syncope secondary to profound anemia and GI bleeding. This is a 77-year-old female with no major medical illnesses, except for his dyslipidemia. Patient presented to the ER last night with recurrent episodes of syncope and lightheadedness over the last 4 days. Patient had at least 4 episodes, not associated with any other symptoms. No headache, no nausea, no vomiting, no chest pain, no palpitations, no melena no hematemesis no dysuria and no frequency no urgency. Patient presented to the ER, and she was noted to be slightly anemic. And her blood pressure was borderline. Initial hemoglobin was 7.1. However after fluid boluses for low blood pressure, repeat hemoglobin was 4.9. Apparently the patient received in the meantime heparin for elevated troponin, and she may have sustained some acute on chronic episode of GI bleeding. Patient was given 2 units of blood, and she is yet to have 2 more units of blood presently while in the ICU, patient repeat hemoglobin is pending. However she is feeling better since the blood was given, and her labs were reviewed, she had a slightly elevated lactic acid, BUN was 70, creatinine 1.0. Initial lactic acid was 2.6, repeat lactic acid was 1.1. Troponin on admission was 0.069, repeat troponin was 0.036. Stool was positive for occult blood. Considering her symptoms, and considering the significantly low hemoglobin, and possible undergoing GI bleeding, patient was admitted to the ICU , and this consult was initiated. Patient was reevaluated today on 01/29/2018, remains in the ICU, doing well, relatively asymptomatic. Patient received a total of 4 units of packed RBCs yesterday, and her hemoglobin today is 9.5. She had to black bowel movements last night, no hematemesis, and no bright red blood per rectum. Denies any nausea vomiting abdominal pain. Patient is scheduled to undergo EGD today. Her initial hemoglobin on presentation was 4.9. Objective - Vital Signs Vital signs: Vital Signs Temp 98.6 F 01/29/18 04:00 Pulse 83 01/29/18 07:00 Resp 18 01/29/18 07:00 BP 118/53 01/29/18 07:00 Pulse Ox 94 L 01/29/18 07:00 Intake & Output 01/28/18 01/29/18 01/29/18 18:59 06:59 18:59 Intake Total 2340 779.125 10 Output Total 2370 895 100 Balance -30 -115.875 -90 Weight 53.6 kg 55.4 kg Intake: IV 200 70 10 normal saline 200 70 10 Intake, IV Titration 9.125 Amount Norepinephrine 4 mg In 9.125 Sodium Chloride 0.9% 250 ml @ Titrate IV .Q0M [facility] Rx#:[id number] Oral 900 700 Blood Product 1240 Rc As-1 Unit 310 [id number] Rc As-1 Unit 310 [id number] Rc As-1 Unit 310 [id number] Output: Urine 2370 895 100 Uretheral (Anderson) 850 Other: Voiding Method Indwelling Catheter Indwelling Catheter # Bowel Movements 1 - Exam Physical Exam: Revealed a 77-year-old female, pleasant, in no distress. Head:, Atraumatic normocephalic, dry mucous membranes noted. HEENT:[Neck is supple.] [No neck masses.] [No thyromegaly.] [No JVD.] Chest: [Clear throughout, no crackles, no rhonchi, no wheezes.] Cardiac Exam: [Normal S1 and S2, no S3 gallop, no murmur.] Abdomen: [Soft, nontender, no megaly, no rebound, no guarding, normal bowel sounds.] Extremities: [No clubbing, no edema, no cyanosis.] Neurological Exam: Alert, oriented 3, no gross focal neurologic deficit. Psychiatric: Normal mood affect and mental status examination. Skin: No rashes. No ulcerations. No clubbing, no cyanosis. - Labs CBC & Chem 7: 01/29/18 04:17 01/29/18 04:17 Labs: Abnormal Lab Results - Last 24 Hours (Table) 01/28/18 01/28/18 01/28/18 Range/Units 02:50 02:50 07:57 WBC (3.8-10.6) k/uL RBC (3.80-5.40) m/uL Hgb (11.4-16.0) gm/dL Hct (34.0-46.0) % RDW (11.5-15.5) % Neutrophils # (1.3-7.7) k/uL Lymphocytes # (1.0-4.8) k/uL Potassium (3.5-5.1) mmol/L Chloride 111 H (98-107) mmol/L Carbon Dioxide 19 L (22-30) mmol/L BUN 51 H (7-17) mg/dL Glucose 157 H (74-99) mg/dL POC Glucose (mg/dL) 163 H (75-99) mg/dL Calcium 7.9 L (8.4-10.2) mg/dL Phosphorus (2.5-4.5) mg/dL Magnesium 3.1 H (1.6-2.3) mg/dL Iron (50-170) ug/dL Total Protein 5.2 L (6.3-8.2) g/dL Albumin 2.4 L (3.5-5.0) g/dL Crossmatch See Detail 01/28/18 01/28/18 01/28/18 Range/Units 09:25 09:25 14:06 WBC 15.2 H (3.8-10.6) k/uL RBC 3.51 L (3.80-5.40) m/uL Hgb 9.7 L D (11.4-16.0) gm/dL Hct 28.8 L (34.0-46.0) % RDW 17.5 H (11.5-15.5) % Neutrophils # (1.3-7.7) k/uL Lymphocytes # (1.0-4.8) k/uL Potassium (3.5-5.1) mmol/L Chloride (98-107) mmol/L Carbon Dioxide (22-30) mmol/L BUN (7-17) mg/dL Glucose (74-99) mg/dL POC Glucose (mg/dL) (75-99) mg/dL Calcium (8.4-10.2) mg/dL Phosphorus (2.5-4.5) mg/dL Magnesium 2.5 H (1.6-2.3) mg/dL Iron 40 L (50-170) ug/dL Total Protein (6.3-8.2) g/dL Albumin (3.5-5.0) g/dL Crossmatch 01/29/18 01/29/18 Range/Units 04:17 04:17 WBC 11.1 H (3.8-10.6) k/uL RBC 3.56 L (3.80-5.40) m/uL Hgb 9.5 L (11.4-16.0) gm/dL Hct 28.8 L (34.0-46.0) % RDW 17.4 H (11.5-15.5) % Neutrophils # 9.5 H (1.3-7.7) k/uL Lymphocytes # 0.7 L (1.0-4.8) k/uL Potassium 3.3 L (3.5-5.1) mmol/L Chloride 109 H (98-107) mmol/L Carbon Dioxide (22-30) mmol/L BUN 18 H (7-17) mg/dL Glucose 105 H (74-99) mg/dL POC Glucose (mg/dL) (75-99) mg/dL Calcium 7.8 L (8.4-10.2) mg/dL Phosphorus 2.1 L (2.5-4.5) mg/dL Magnesium (1.6-2.3) mg/dL Iron (50-170) ug/dL Total Protein 4.4 L (6.3-8.2) g/dL Albumin 2.1 L (3.5-5.0) g/dL Crossmatch Microbiology - Last 24 Hours (Table) 01/27/18 23:31 Urine Culture - Final Urine,Catheterized 01/27/18 23:31 Blood Culture - Preliminary Blood No Growth after 24 hours Assessment and Plan Assessment: Impression: 1 Recurrent episodes of syncope, most likely secondary to orthostatic hypotension, hypovolemia, and ongoing GI blood losses. 2 acute on chronic anemia secondary to GI blood losses, exacerbated mostly by receiving heparin in the emergency room. 3 elevated troponin, significance of which is not clear at this point, however patient is to be seen by cardiology. 4 history of dyslipidemia. Recommendation: Patient received a total of 4 units of packed RBCs since admission, she had black bowel movements last night, no other symptoms. Hemoglobin this morning is 9.5, hence we will continue to observe, no need for any further blood transfusion, patient is scheduled to have EGD today by gastroenterology. We will likely transfer the patient out of the ICU to a regular medical floor today. That will depend on the findings of the EGD. We' ll continue to follow. Time with Patient: Less than 30
[2018-01-29] MEDS ORDERED: PANTOPRAZOLE 40 MG/10 ML VIAL IVP SCH (09:00)
[2018-01-29] MEDS ORDERED: NA PHOS,M-B/NA PHOS,DI-BA 133 ML ENEMA RECTAL STA (10:58)
--- NOTE | 2018-01-29 11:32 | PN ---
PROGRESS NOTE This patient's medical records, labs and hemodynamics reviewed. The patient is admitted with syncope and GI bleed. The patient's vital signs remain stable. She denies any dizziness or lightheadedness. Blood pressure is 118/53 mmHg. First and second heart sounds are heard. Lungs are clear to auscultation and percussion. Patient's hemoglobin is now 9.5. Patient is undergoing upper and lower GI endoscopy today. MMODL / IJN: [id number] /
[2018-01-29] MEDS: METOPROLOL TARTRATE 12.5 MG TAB PO SCH ×2 (11:45→20:46)
--- NOTE | 2018-01-29 13:26 | ECHOF ---
Referral Reason:murmur MEASUREMENTS -------- HEIGHT: 152.4 cm WEIGHT: 53.5 kg BP: IVSd: 1.4 cm (0.6 - 1.1) LVIDd: 2.4 cm (3.9 - 5.3) LVPWd: 1.4 cm (0.6 - 1.1) IVSs: 1.4 cm LVIDs: 1.7 cm LVPWs: 1.5 cm Ao Diam: 2.9 cm (2.0 - 3.7) AV Cusp: 1.4 cm (1.5 - 2.6) LA Diam: 2.9 cm (2.7 - 3.8) EPSS: 0.6 cm MV E Obdulio: 1.14 m/s MV DecT: 193 ms MV A Obdulio: 1.34 m/s MV E/A Ratio: 0.85 AV maxP.91 mmHg AV meanP.64 mmHg RAP: 5.00 mmHg RVSP: 28.05 mmHg MV EF SLOPE: 39.02 mm/s (70 - 150) MV EXCURSION: 1.12 cm (> 18.000) FINDINGS -------- Sinus rhythm. This was a technically difficult study with suboptimal views. The left ventricular size is normal. There is moderate concentric left ventricular hypertrophy. O verall left ventricular systolic function is normal with, an EF between 60 - 65 %. The right ventricle is normal in size and function. The left atrium is normal in size. The right atrium is normal in size. XX ml of Lumason was utilized for enhancement of images. Aortic valve is trileaflet and is mildly thickened. There is mild aortic stenosis present. Peak/m robin gradient across the Aortic Valve is 20.91mmHg / 10.64mmHg. The mitral valve leaflets are mildly thickened. Mild mitral regurgitation is present. Mild tricuspid regurgitation present. The right ventricular systolic pressure, as measured by Doppl er, is 28.05mmHg. The pulmonic valve is normal. The aortic root size is normal. The pericardium is normal. CONCLUSIONS -------- 1. Sinus rhythm. 2. This was a technically difficult study with suboptimal views. 3. The left ventricular size is normal. 4. There is moderate concentric left ventricular hypertrophy. 5. Overall left ventricular systolic function is normal with, an EF between 60 - 65 %. 6. The right ventricle is normal in size and function. 7. The left atrium is normal in size. 8. The right atrium is normal in size. 9. XX ml of Lumason was utilized for enhancement of images. 10. Aortic valve is trileaflet and is mildly thickened. 11. There is mild aortic stenosis present. 12. Peak/mean gradient across the Aortic Valve is 20.91mmHg / 10.64mmHg. 13. The mitral valve leaflets are mildly thickened. 14. Mild mitral regurgitation is present. 15. Mild tricuspid regurgitation present. 16. The right ventricular systolic pressure, as measured by Doppler, is 28.05mmHg. 17. The pulmonic valve is normal. 18. The aortic root size is normal. 19. The pericardium is normal. MACHINE CUTTER: Beth Dye RDCS
[2018-01-29] MEDS ORDERED: PROPOFOL 10 MG/ML 20 ML VIAL IV ONE (14:10)
[2018-01-29] MEDS ORDERED: LIDOCAINE 1% INJ 10MG/ML (20 ML MDV) ONE (14:10)
[2018-01-29] MEDS ORDERED: IV FLUID CONTINUATION 350 ML IV ONE (14:13)
--- NOTE | 2018-01-29 15:28 | P.PCN ---
Date of Procedure: 01/29/18 Description of Procedure: Brief history: Patient is a pleasant 77-year-old female presented with symptomatic anemia and reports of melanotic stool. She was scheduled for EGD and colonoscopy for further evaluation. The patient is unsure of her last colonoscopy but believes it was in the remote past. Procedure performed: Esophagogastroduodenoscopy with biopsy Colonoscopy Estimated blood loss: Minimal. Preoperative diagnosis: Symptomatic anemia, melena [place] [facility] [place] After informed consent was obtained from the patient was brought into the endoscopy unit and IV sedation was administered by anesthesia under continuous monitoring. Initially upper endoscopy was done. The Olympus GF 190 video endoscope was inserted into the mouth and esophagus intubated without any difficulty and was gradually advanced into the stomach and duodenum and carefully examined. The bulb and second part of the duodenum appeared were significant for duodenitis which was biopsied. The scope was then withdrawn into the stomach adequately insufflated with air and upon careful examination the antrum and body were significant for mild scattered erythema suggestive of gastritis which was biopsied. There was a large area of ulceration in a large diverticulum which is present in the cardia of the stomach. Biopsies of this ulcerated epigastric area located in the cardia diverticulum were taken. The scope was then withdrawn into the esophagus. Where a hiatal hernia was noted from 26-30 cm. Severe esophagitis was noted in the distal esophagus from 23 cm from the incisors to 26 cm. Patient tolerated the procedure well. At this time the patient continued to remain sedation. Initial digital rectal examination was normal. Olympus CF 190 video colonoscope was then inserted into the rectum and gradually advanced to the cecum without any difficulty. Careful examination was performed as the scope was gradually being withdrawn. The prep was poor with a large amount of liquid stool noted throughout the colon with some solid stool noted as well. Copious lavage was performed to try and remove stool with some improvement in visualization, however it was still a copious amount of stool making definitive visualization of the mucosa difficult. The cecum, ascending colon, transverse colon, descending colon, sigmoid colon and rectum grossly normal within the limits of the impaired visualization with no evidence of active bleeding and liquid melanotic stool noted throughout the colon. Retroflexion was performed in the rectum and no lesions were noted, with mild internal hemorrhoids seen. Patient tolerated the procedure well. Impression: 1. Severe erosive esophagitis in the distal esophagus, biopsied. Hiatal hernia. 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 Gastritis, biopsied. Duodenitis, biopsied. 2. No active bleeding or fresh blood noted throughout the colon, with liquid melanotic stool noted throughout. Internal hemorrhoids. Recommendations: Findings of this examination were discussed with the patient as well as the nursing staff. Okay for full liquid diet today. Continue to monitor hemoglobin and transfuse as needed. Will start Carafate 3 times daily. Will increase Protonix to 40 mg IV twice a day. Patient will need repeat upper endoscopy in 4-6 weeks to ensure ulcer healing. Await pathology of biopsies. Avoid NSAIDs.
--- NOTE | 2018-01-29 19:11 | PN ---
PROGRESS NOTE DATE OF SERVICE: 01/29/2018 This 77-year-old woman was admitted with weakness, anemia. The patient had multiple transfusions. Hemoglobin is found to be 4.9 and improved to 9.5, potassium 3.3 at this time. The patient had multiple transfusions. Patient also had endoscopy [facility]. The upper and lower endoscopies showed severe erosive esophagitis in the distal esophagus, which was biopsied and a large area of stomach ulceration in the cardia and no other bleeding source was noted. The patient being closely monitored. There is no history of fever, rigors or chills. PAST MEDICAL HISTORY: Reviewed. REVIEW OF SYSTEMS: CARDIOVASCULAR: No angina or palpitations. Respiratory: As mentioned earlier. GI: No nausea or vomiting. : No dysuria. NERVOUS SYSTEM: No numbness or weakness. CURRENT MEDICATIONS ARE: Reviewed and include: 1. Lopressor 12.5 mg p.o. b.i.d. 2. Potassium protocol. 3. Narcan. 4. Protonix 40 mg IV b.i.d. 5. Carafate 1 g a.c. t.i.d. PHYSICAL EXAM: Patient is alert, oriented x2. Pulse 79, blood pressure 119/70, respirations 13, temperature 97.8, pulse ox 94% on room air. HEENT: Conjunctivae normal. Oral mucosa moist. Neck is no jugular venous distention. No carotid bruit. No lymph node enlargement. Cardiovascular system: S1, S2 muffled. No S3, no S4. Respiratory: Breath sounds diminished in the bases. No rhonchi. No crackles. ABDOMEN: Soft, nontender. Mild diffuse distention. Legs are no edema. No swelling. Nervous system: No focal deficits. LABS: WBC 11.2, hemoglobin 9.2, sodium 130, potassium 3.3, albumin 2.1. ASSESSMENT: 1. Acute upper gastrointestinal bleeding from possible acute gastric ulcer and as well as severe erosive esophagitis. 2. Status post blood transfusion. 3. Hyperlipidemia. 4. History of carotid stenosis and carotid endarterectomy on the right side. 5. Increased WBC, improved. 6. Microcytosis. 7. Hyponatremia. 8. Increased lactic acid, present on admission, improved. 9. Troponin 0.06 90, indeterminate. RECOMMENDATIONS AND DISCUSSION: Recommend to continue current medications, management, symptomatic treatment. Otherwise at this time, we will monitor the hemoglobin closely. Continue the rest of medications. Cautious diet. Closely follow with Gastroenterology and Cardiology. Guarded prognosis. Further recommendations to follow. See orders for details. MMODL / IJN: [id number] /
[2018-01-29] MEDS: PANTOPRAZOLE 40 MG/10 ML VIAL IVP SCH (20:47)
[2018-01-29] MEDS: SUCRALFATE 1 GM TAB PO SCH (20:47)
[2018-01-30 07:46] VITALS: BP 95/51; PULSE 78; RESP 14; TEMP 98.8
[2018-01-30 08:33] LABS: Magnesium 2.1 mg/dL (1.6-2.3); Phosphorus 2.9 mg/dL (2.5-4.5)
[2018-01-30] MEDS: METOPROLOL TARTRATE 12.5 MG TAB PO SCH (08:53)
[2018-01-30] MEDS: PANTOPRAZOLE 40 MG/10 ML VIAL IVP SCH (08:53)
[2018-01-30] MEDS: SUCRALFATE 1 GM TAB PO SCH ×2 (08:53→13:48)
--- NOTE | 2018-01-30 11:57 | P.PN ---
Subjective Progress Note Date: 01/30/18 Principal diagnosis: Recurrent episodes of syncope secondary to profound anemia and GI bleeding. This is a 77-year-old female with no major medical illnesses, except for his dyslipidemia. Patient presented to the ER last night with recurrent episodes of syncope and lightheadedness over the last 4 days. Patient had at least 4 episodes, not associated with any other symptoms. No headache, no nausea, no vomiting, no chest pain, no palpitations, no melena no hematemesis no dysuria and no frequency no urgency. Patient presented to the ER, and she was noted to be slightly anemic. And her blood pressure was borderline. Initial hemoglobin was 7.1. However after fluid boluses for low blood pressure, repeat hemoglobin was 4.9. Apparently the patient received in the meantime heparin for elevated troponin, and she may have sustained some acute on chronic episode of GI bleeding. Patient was given 2 units of blood, and she is yet to have 2 more units of blood presently while in the ICU, patient repeat hemoglobin is pending. However she is feeling better since the blood was given, and her labs were reviewed, she had a slightly elevated lactic acid, BUN was 70, creatinine 1.0. Initial lactic acid was 2.6, repeat lactic acid was 1.1. Troponin on admission was 0.069, repeat troponin was 0.036. Stool was positive for occult blood. Considering her symptoms, and considering the significantly low hemoglobin, and possible undergoing GI bleeding, patient was admitted to the ICU , and this consult was initiated. Patient was reevaluated today on 01/29/2018, remains in the ICU, doing well, relatively asymptomatic. Patient received a total of 4 units of packed RBCs yesterday, and her hemoglobin today is 9.5. She had to black bowel movements last night, no hematemesis, and no bright red blood per rectum. Denies any nausea vomiting abdominal pain. Patient is scheduled to undergo EGD today. Her initial hemoglobin on presentation was 4.9. The patient is seen again today the 2017 on the regular medical floor. She is awake and alert in no acute distress. Maintaining good O2 saturations in the 90s on room air. Afebrile. Hemodynamically stable. She is status post 3 units packed red blood cells this admission. Current hemoglobin 9.5. She did undergo EGD at yesterday and was found to have severe erosive esophagitis in the distal esophagus, biopsied. Hiatal hernia. 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 Gastritis, biopsied. Duodenitis, biopsy. There is no active bleeding or fresh blood noted throughout the colon. There was liquid melena not stool noted throughout. Internal hemorrhoids. Objective - Vital Signs Vital signs: Vital Signs Temp 98.8 F 01/30/18 07:45 Pulse 78 01/30/18 07:45 Resp 14 01/30/18 07:45 BP 95/51 01/30/18 07:45 Pulse Ox 95 01/30/18 07:45 Intake & Output 01/29/18 01/30/18 01/30/18 18:59 06:59 18:59 Intake Total 1170 100 Output Total 1165 630 Balance 5 -530 Weight 51 kg Intake: IV 770 Potassium Chloride 10 meq 400 In Water For Injection 1 100ml.bag @ 100 mls/hr IVPB Q1HR ON LICENSE OF [facility] Rx#: [id number] normal saline 20 Oral 400 100 Output: Urine 1165 630 Other: Voiding Method Indwelling Catheter Indwelling Catheter - Exam Physical Exam: Revealed a 77-year-old female, pleasant, in no distress. Head:, Atraumatic normocephalic, dry mucous membranes noted. HEENT:[Neck is supple.] [No neck masses.] [No thyromegaly.] [No JVD.] Chest: [Clear throughout, no crackles, no rhonchi, no wheezes.] Cardiac Exam: [Normal S1 and S2, no S3 gallop, no murmur.] Abdomen: [Soft, nontender, no megaly, no rebound, no guarding, normal bowel sounds.] Extremities: [No clubbing, no edema, no cyanosis.] Neurological Exam: Alert, oriented 3, no gross focal neurologic deficit. Psychiatric: Normal mood affect and mental status examination. Skin: No rashes. No ulcerations. No clubbing, no cyanosis. - Labs CBC & Chem 7: 01/29/18 04:17 01/29/18 04:17 Labs: Abnormal Lab Results - Last 24 Hours (Table) 01/28/18 Range/Units 02:50 Crossmatch See Detail Microbiology - Last 24 Hours (Table) 01/27/18 23:31 Blood Culture - Preliminary Blood No Growth after 48 hours Assessment and Plan Assessment: Impression: 1 Recurrent episodes of syncope, most likely secondary to orthostatic hypotension, hypovolemia, and ongoing GI blood losses. EGD/colonoscopy on 01/29 revealed severe erosive esophagitis in the distal esophagus, hiatal hernia , diverticulum in the cardia of the stomach with a large area of ulceration, gastritis, duodenitis. No active bleeding or fresh blood noted throughout the colon. There was remaining liquid melanotic stool throughout. 2 acute on chronic anemia secondary to GI blood losses, exacerbated mostly by receiving heparin in the emergency room. 3 elevated troponin, significance of which is not clear at this point, however patient is to be seen by cardiology. 4 history of dyslipidemia. Recommendation: The patient was seen and evaluated by Dr. Rogers. She is currently stable from the pulmonary and critical care standpoint. We'll continue with current treatment plan. We'll continue to follow. I, the cosigning physician, performed a history & physical examination of the patient. Lungs sounds are clear. Maintaining good O2 saturations in the 90s on room air. I discussed the assessment and plan of care with my nurse practitioner, Yanna Regalado. I attest to the above note as dictated by her.
--- NOTE | 2018-01-31 10:52 | DS ---
DISCHARGE SUMMARY DATE OF SERVICE: 01/30/2018 FINAL DIAGNOSES: 1. Acute upper gastrointestinal bleeding from possible acute gastric ulcer as well as severe erosive esophagitis. 2. Status post blood transfusion. 3. Hyperlipidemia. 4. history of carotid stenosis and carotid endarterectomy on the right side. 5. Increased WBC, improved. 6. Microcytosis. 7. Hyponatremia. 8. Increased lactic acid, present on admission, improved. 9. Troponin 0.06 indeterminate. DISCHARGE DISPOSITION: The patient will be discharged in stable condition with guarded prognosis. HISTORY OF PRESENT ILLNESS: This 77-year-old woman with a past medical history of multiple medical problems, admitted with GI bleed. Patient was noted to have low hemoglobin, improved with transfusion at 9.5, stable. The patient underwent endoscopies and findings as above and patient improved significantly. Patient discharged in stable condition and guarded prognosis. Diet is soft, low residue, bland. Otherwise, activity limited to followup. Follow up with Gastroenterology as recommended. Follow up with Dr. Middleton as recommended. No NSAIDs. Medications are: 1. Lipitor 10 mg daily. 2. Lopressor 12.5 mg b.i.d. 3. Protonix 40 mg p.o. b.i.d. 4. Carafate 1 gram a.c. t.i.d. Copy of CBC and BMP to Dr. Middleton. MMODL / IJN: [id number] /
== END 2018-01-30 15:08 | disposition home or self-care (01) | DRG 378 ==
LOC: EC 21:00 → 3SCARD 01-28 00:16 → 2SICU 01-28 06:51 → 4SSUR 01-30 01:14
PROVIDERS: ADMIT Internal Medicine; ATTEND Internal Medicine
PROC: 30233N1 Transfusion of Nonautologous Red Blood Cells into Peripheral Vein, Percutaneous Approach (ICD-10-PCS; principal; 2018-01-28)
PROC: 0DJD8ZZ Inspection of Lower Intestinal Tract, Via Natural or Artificial Opening Endoscopic (ICD-10-PCS; 2018-01-29)
PROC: 0DB98ZX Excision of Duodenum, Via Natural or Artificial Opening Endoscopic, Diagnostic (ICD-10-PCS; 2018-01-29)
PROC: 0DB78ZX Excision of Stomach, Pylorus, Via Natural or Artificial Opening Endoscopic, Diagnostic (ICD-10-PCS; 2018-01-29)
PROC: 0DB38ZX Excision of Lower Esophagus, Via Natural or Artificial Opening Endoscopic, Diagnostic (ICD-10-PCS; 2018-01-29 13:55)
DX: K25.0 Acute gastric ulcer with hemorrhage (principal); E87.1 Hypo-osmolality and hyponatremia; E87.2 Acidosis; D62 Acute posthemorrhagic anemia; K22.10 Ulcer of esophagus without bleeding; E86.1 Hypovolemia; I45.81 Long QT syndrome; D50.0 Iron deficiency anemia secondary to blood loss (chronic); D72.829 Elevated white blood cell count, unspecified; K29.80 Duodenitis without bleeding; K44.9 Diaphragmatic hernia without obstruction or gangrene; K31.4 Gastric diverticulum; K64.8 Other hemorrhoids; I95.1 Orthostatic hypotension; I10 Essential (primary) hypertension; E78.5 Hyperlipidemia, unspecified; F17.210 Nicotine dependence, cigarettes, uncomplicated; Z71.6 Tobacco abuse counseling; Z79.899 Other long term (current) drug therapy; Z90.710 Acquired absence of both cervix and uterus; Z86.79 Personal history of other diseases of the circulatory system
CPT/HCPCS: 36415; 43239; 45378; 70450; 71045; 71046; 80053; 81003; 82272; 82550; 82553; 82728; 83540; 83550; 83605; 83735; 84100; 84443; 84484; 85025; 85027; 85610; 85730; 86850; 86900; 86901; 86920; 87040; 87086; 93005; 93306; 96365; 96366; 96368; 96376; 99291

== ENCOUNTER → 2018-05-16 | Outpatient (CLI) | payer MEDICARE, BC ==
[2018-05-16 11:34] LABS: Anisocytosis Slight; HCT 47.9 % (34.0-46.0); HGB 14.9 gm/dL (11.4-16.0); MCH 25.7 pg (25.0-35.0); MCV 82.7 fL (80.0-100.0); Mean Platelet Volume 7.5; Platelet Count 260 k/uL (150-450); RBC 5.79 m/uL (3.80-5.40); RDW 16.8 % (11.5-15.5); WBC 8.9 k/uL (3.8-10.6)
== END | disposition home or self-care (01) ==
LOC: LABWHC1 10:54
PROVIDERS: ATTEND Internal Medicine
DX: K21.9 Gastro-esophageal reflux disease without esophagitis (principal)
CPT/HCPCS: 36415; 85027

== ENCOUNTER 2018-06-12 09:55 | Day surgery (SDC) | payer MEDICARE, BC ==
[2018-06-10 10:26] VITALS: BMI 20.4
[~2018-06-12 09:55] MED LIST: LACTATED RINGERS 1,000 ML IV SCH; LIDOCAINE 1% 20 ML VIAL (10MG/ML) FOR IV START INTRADERMA PRN
[2018-06-12 10:25] VITALS: TEMP 98.5
[2018-06-12] MEDS ORDERED: LIDOCAINE 1% INJ 10MG/ML (20 ML MDV) ONE (10:34)
[2018-06-12] MEDS ORDERED: PROPOFOL 10 MG/ML 20 ML VIAL IV ONE (10:34)
--- NOTE | 2018-06-12 11:01 | P.PCN ---
Date of Procedure: 06/12/18 Description of Procedure: BRIEF HISTORY: 77-year-old female with recent hospitalization for upper GI bleed at which time the patient was found to have severe erosive esophagitis, an ulcerated gastric diverticulum, gastritis and duodenitis. Biopsies at that time were positive for Helicobacter pylori for which the patient received treatment. The patient presents back for endoscopy to check for ulcer healing and clearing of the H. pylori.. PROCEDURE PERFORMED: Esophagogastroduodenoscopy with biopsy. PREOPERATIVE DIAGNOSIS: History of gastric ulcer, GERD. ESTIMATED BLOOD LOSS: Minimal. IV sedation per anesthesia. PROCEDURE: After informed consent was obtained, the patient was brought into the endoscopy unit. IV sedation was administered by Anesthesia under continuous monitoring. Initially the Olympus GIF-190 video endoscope was inserted into the mouth. Esophagus intubated without any difficulty. It was gradually advanced into the stomach and duodenum and carefully examined. The bulb and the second part of the duodenum appeared normal, with biopsies taken. The scope at this time was withdrawn to the stomach, adequately insufflated with air, and upon careful examination, mucosa of the antrum, body, cardia and the fundus appeared grossly normal, with mild scattered erythema in the antrum and body suggestive of mild gastritis with biopsies taken. Previously seen ulcer on the gastric diverticulum is healed. Large hiatal hernia. The scope was then withdrawn into the esophagus. The GE junction was located at 26 cm from the incisors. The esophagus appeared normal. There were no erosions or ulcerations seen and the patient tolerated the procedure well. IMPRESSION: 1. Well-healed gastric ulcer. 2. Mild gastritis antrum and body, biopsied. 3. Gastric diverticulum. 4. Large hiatal hernia. RECOMMENDATIONS: The findings of this examination were discussed with the patient and her son. Okay for diet. Would continue omeprazole daily. Await pathology from biopsies. Follow up with gastroenterology as previously scheduled.
[2018-06-12 11:32] VITALS: BP 112/74; PULSE 71; RESP 18
== END 2018-06-12 11:51 | disposition home or self-care (01) ==
LOC: ORWHC2ENDO 09:55
PROVIDERS: ATTEND Internal Medicine
DX: K25.9 Gastric ulcer, unspecified as acute or chronic, without hemorrhage or perforation (principal); K29.50 Unspecified chronic gastritis without bleeding; K31.4 Gastric diverticulum; K44.9 Diaphragmatic hernia without obstruction or gangrene; Z87.19 Personal history of other diseases of the digestive system; B96.81 Helicobacter pylori [H. pylori] as the cause of diseases classified elsewhere; K21.9 Gastro-esophageal reflux disease without esophagitis; Z87.11 Personal history of peptic ulcer disease; I10 Essential (primary) hypertension; E78.5 Hyperlipidemia, unspecified; F17.200 Nicotine dependence, unspecified, uncomplicated; Z79.899 Other long term (current) drug therapy
CPT/HCPCS: 88305; 88342; 43239; J2001; J2704

== ENCOUNTER → 2019-02-09 | Day surgery (SDC) | payer MEDICARE, BC ==
[2019-02-03 13:12] VITALS: BMI 22.4
[~2019-02-09] MED LIST changes: +PROPOFOL 10 MG/ML 20 ML VIAL IV ONE
[2019-02-09 07:17] VITALS: TEMP 97
--- NOTE | 2019-02-09 08:51 | P.PCN ---
Date of Procedure: 02/09/19 Description of Procedure: BRIEF HISTORY: 78-year-old female with recent hospitalization for upper GI bleed at which time the patient was found to have severe erosive esophagitis, an ulcerated gastric diverticulum, gastritis and duodenitis. Biopsies at that time were positive for Helicobacter pylori for which the patient received treatment. The patient presents back for endoscopy to check for ulcer healing and clearing of the H. pylori.. PROCEDURE PERFORMED: Esophagogastroduodenoscopy with biopsy. PREOPERATIVE DIAGNOSIS: History of gastric ulcer, GERD. ESTIMATED BLOOD LOSS: Minimal. IV sedation per anesthesia. PROCEDURE: After informed consent was obtained, the patient was brought into the endoscopy unit. IV sedation was administered by Anesthesia under continuous monitoring. Initially the Olympus GIF-190 video endoscope was inserted into the mouth. Esophagus intubated without any difficulty. It was gradually advanced into the stomach and duodenum and carefully examined. The bulb and the second part of the duodenum appeared normal, with biopsies taken. The scope at this time was withdrawn to the stomach, adequately insufflated with air, and upon careful examination, mucosa of the antrum, body, cardia and the fundus appeared grossly normal, with mild scattered erythema in the antrum and body suggestive of mild gastritis and previously noted antral ulcer healing well with biopsies of the antrum and body taken. Previously seen gastric diverticulum again appears ulcerated with biopsies of the ulcer taken. Large 7 cm hiatal hernia. The scope was then withdrawn into the esophagus. The GE junction was located at 26 cm from the incisors. The esophagus appeared normal. There were no erosions or ulcerations seen and the patient tolerated the procedure well. IMPRESSION: 1. Previously noted gastric diverticulum ulcerated, biopsies taken. 2. Mild gastritis antrum and body, biopsied, with previously seen antral ulcer revealed. 3. Large hiatal hernia. RECOMMENDATIONS: The findings of this examination were discussed with the patient and her son. Okay for diet. Would continue increase Protonix to twice daily. Await pathology from biopsies. Follow up with gastroenterology in 2-4 weeks to go over pathology results.
[2019-02-09 09:07] VITALS: BP 119/73; PULSE 75; RESP 18
== END ==
LOC: ORWHC2ENDO 06:44
PROVIDERS: ATTEND Internal Medicine
DX: K25.9 Gastric ulcer, unspecified as acute or chronic, without hemorrhage or perforation (principal); K29.50 Unspecified chronic gastritis without bleeding; K44.9 Diaphragmatic hernia without obstruction or gangrene; K29.70 Gastritis, unspecified, without bleeding; K21.0 Gastro-esophageal reflux disease with esophagitis; K31.4 Gastric diverticulum; Z79.899 Other long term (current) drug therapy; F17.200 Nicotine dependence, unspecified, uncomplicated; E78.5 Hyperlipidemia, unspecified; H91.90 Unspecified hearing loss, unspecified ear
CPT/HCPCS: 43239; 88305; 88342; J2704

== ENCOUNTER 2022-08-25 10:18 | Inpatient (IN) | payer MEDICARE, BC ==
[2022-08-25] MEDS ORDERED: SODIUM CHLORIDE 0.9% 500 ML 500 ML IV STA (10:24)
--- NOTE | 2022-08-25 10:26 | ED ---
General Adult HPI - General Stated complaint: fall Time Seen by Provider: 08/25/22 10:20 Source: patient, RN notes reviewed, old records reviewed - History of Present Illness Initial comments: This is a 81-year-old female presents emergency room stating she went to get up this morning and lost her balance and fell over and hurt her right hip. Patient states she did bump her head on the nightstand but she has no headache she did not was conscious she was not days she has no neck pain she has no numbness weakness. Patient states everything hurts her at this point time is her right hip. Patient denies any blood thinners. Patient denies any chest pain difficulty breathing shortness breath. Patient has any back pain. Patient denies any other extremity pain. - Related Data Home Medications Medication Instructions Recorded Confirmed Atorvastatin [Lipitor] 10 mg PO DAILY 03/08/17 08/25/22 Ferrous Sulfate [Feosol] 325 mg PO DAILY 06/10/18 08/25/22 Pantoprazole Sodium [Protonix] 40 mg PO DAILY 02/03/19 08/25/22 Cholecalciferol [Vitamin D3 (25 25 mcg PO DAILY 08/25/22 08/25/22 Mcg = 1000 Iu)] Allergies Allergy/AdvReac Type Severity Reaction Status Date / Time No Known Allergies Allergy Verified 08/25/22 12:19 Review of Systems ROS Statement: Those systems with pertinent positive or pertinent negative responses have been documented in the HPI. ROS Other: All systems not noted in ROS Statement are negative. Past Medical History Past Medical History: GERD/Reflux, Hearing Disorder / Deafness, Hyperlipidemia Additional Past Medical History / Comment(s): hx stomach ulcers, h pylori History of Any Multi-Drug Resistant Organisms: None Reported Past Surgical History: Hysterectomy Additional Past Surgical History / Comment(s): eye surg. years ago, carotid endarterectomy Past Anesthesia/Blood Transfusion Reactions: No Reported Reaction Past Psychological History: No Psychological Hx Reported Past Alcohol Use History: None Reported Additional Past Alcohol Use History / Comment(s): smoker for 60 years 1 ppd Past Drug Use History: None Reported - Past Family History Father Family Medical History: Cancer Sister(s) Family Medical History: Cancer Brother(s) Family Medical History: Cancer General Exam - General Exam Comments Initial Comments: GENERAL: Patient is well-developed and well-nourished. Patient is nontoxic and well- hydrated and is in mild distress. ENT: Neck is soft and supple. No significant lymphadenopathy is noted. Oropharynx is clear. Moist mucous membranes. Neck has full range of motion without eliciting any pain. 6640 EYES: The sclera were anicteric and conjunctiva were pink and moist. Extraocular movements were intact and pupils were equal round and reactive to light. Eyelid s were unremarkable. PULMONARY: Unlabored respirations. Good breath sounds bilaterally. No audible rales rhonchi or wheezing was noted. CARDIOVASCULAR: There is a regular rate and rhythm without any murmurs gallops or rubs. ABDOMEN: Soft and nontender with normal bowel sounds. SKIN: Skin is clear with no lesions or rashes and otherwise unremarkable. NEUROLOGIC: Patient is alert and oriented 2. Cranial nerves II through XII are grossly intact. Motor and sensory are also intact. Normal speech, volume and content. Symmetrical smile. Cerebellar exam grossly intact. MUSCULOSKELETAL: Patient's right hip is tender to palpation the leg is shortened and externally rotated LYMPHATICS: No significant lymphadenopathy is noted PSYCHIATRIC: Normal psychiatric evaluation. Course Vital Signs 08/25/22 10:22 Temperature 97.1 F L Pulse Rate 82 Respiratory 18 Rate Blood Pressure 137/54 O2 Sat by Pulse 98 Oximetry Medical Decision Making - Medical Decision Making EKG was interpreted by myself shows a sinus rhythm at 85 bpm MN interval 180 white dresses 83 QT interval 35 QTC is 427. Patient's EKG shows no ST segment elevation or depression. Was pt. sent in by a medical professional or institution (, PA, ULTRASOUND SONOGRAPHER, urgent care, hospital, or prison...) When possible be specific @ -No Did you speak to anyone other than the patient for history (EMS, parent, family, police, friend...)? What history was obtained from this source @ -No Did you review nursing and triage notes (agree or disagree)? Why? @ -I reviewed and agree with nursing and triage notes Were old charts reviewed (outside hosp., previous admission, EMS record, old EKG, old radiological studies, urgent care reports/EKG's, prison records)? Report findings @ -I reviewed prior charts prior lab work on this patient Differential Diagnosis (chest pain, altered mental status, abdominal pain women, abdominal pain men, vaginal bleeding, weakness, fever, dyspnea, syncope, headache, dizziness, GI bleed, back pain, seizure, CVA, palpatations, mental health, musculoskeletal)? @ -Differential Musculoskeletal Muscular strain, contusion, ligament sprain, fracture, arthritis, septic arthritis, bursitis, cellulitis, muscle spasm, nerve compression, DVT, arterial occlusion, herpes zoster, electrolyte abnormality, tumor.... This is not meant to be in all inclusive list EKG interpreted by me (3pts min.). @ -As above X-rays interpreted by me (1pt min.). @ -Patient's chest x-ray shows no acute abnormality. Patient's x-ray of the hip shows intertrochanteric impacted fracture. CT interpreted by me (1pt min.). @ -None done U/S interpreted by me (1pt. min.). @ -None done What testing was considered but not performed or refused? (CT, X-rays, U/S, labs)? Why? @ -None What meds were considered but not given or refused? Why? @ -None Did you discuss the management of the patient with other professionals (professionals i.e. , PA, ULTRASOUND SONOGRAPHER, lab, RT, psych nurse, social media strategist, retirement village manager, teacher, multisensor intelligence officer, protective services case worker)? Give summary @ -I spoke with Dr. Whitley he wanted the patient to have a CT of the hip that was ordered by myself. He also wanted the hospitalist to see the patient today. I spoke with Dr. Lazar and he was made aware Was smoking cessation discussed for >3mins.? @ -No Was critical care preformed (if so, how long)? @ -No Were there social determinants of health that impacted care today? How? (Homelessness, low income, unemployed, alcoholism, drug addiction, transportation, low edu. Level, literacy, decrease access to med. care, usp, rehab)? @ -No Was there de-escalation of care discussed even if they declined (Discuss DNR or withdrawal of care, Hospice)? DNR status @ -No What co-morbidities impacted this encounter? (DM, HTN, Smoking, COPD, CAD, Cancer, CVA, ARF, Chemo, Hep., AIDS, mental health diagnosis, sleep apnea, morbi d obesity)? @ -None Was patient admitted / discharged? Hospital course, mention meds given and route, prescriptions, significant lab abnormalities, going to OR and other pertinent info. @ -Patient has a fractured right hip impacted intertrochanteric. Dr. Whitley is accepted the patient the patient will be admitted to him I will write admi tting orders and I will consult Dr. Lazar for medical clearance. Patient states she did bump her head but she does not have a headache and denies any loss of consciousness or being days so no CT was done Undiagnosed new problem with uncertain prognosis? @ -No Drug Therapy requiring intensive monitoring for toxicity (Heparin, Nitro, Insulin, Cardizem)? @ -No Were any procedures done? @ -No Diagnosis/symptom? @ -Intertrochanteric hip fracture Acute, or Chronic, or Acute on Chronic? @ -Acute Uncomplicated (without systemic symptoms) or Complicated (systemic symptoms)? @ -Complicated Side effects of treatment? @ -No Exacerbation, Progression, or Severe Exacerbation? @ -No Poses a threat to life or bodily function? How? (Chest pain, USA, MD, pneumonia, PE, COPD, DKA, ARF, appy, cholecystitis, CVA, Diverticulitis, Homicidal, Suicidal, threat to staff... and all critical care pts) @ -Yes. Poor healing with this could lead to significant morbidity Diagnosis/symptom? @ -Minor head trauma Acute, or Chronic, or Acute on Chronic? @ -Acute Uncomplicated (without systemic symptoms) or Complicated (systemic symptoms)? @ -Uncomplicated Side effects of treatment? @ -none Exacerbation, Progression, or Severe Exacerbation] @ -no Poses a threat to life or bodily function? @ -no - Lab Data Result diagrams: 08/25/22 10:38 08/25/22 10:38 Lab Results 08/25/22 08/25/22 08/25/22 Range/Units 10:38 10:38 10:38 WBC 16.9 H (3.8-10.6) k/uL RBC 4.69 (3.80-5.40) m/uL Hgb 14.5 (11.4-16.0) gm/dL Hct 45.6 (34.0-46.0) % MCV 97.2 (80.0-100.0) fL MCH 30.9 (25.0-35.0) pg MCHC 31.8 (31.0-37.0) g/dL RDW 13.0 (11.5-15.5) % Plt Count 304 (150-450) k/uL MPV 7.9 Neutrophils % 93 % Lymphocytes % 2 % Monocytes % 4 % Eosinophils % 0 % Basophils % 0 % Neutrophils # 15.8 H (1.3-7.7) k/uL Lymphocytes # 0.4 L (1.0-4.8) k/uL Monocytes # 0.6 (0-1.0) k/uL Eosinophils # 0.1 (0-0.7) k/uL Basophils # 0.0 (0-0.2) k/uL PT 10.7 (9.0-12.0) sec INR 1.0 (<1.2) APTT 23.7 (22.0-30.0) sec Sodium 135 L (137-145) mmol/L Potassium 4.7 (3.5-5.1) mmol/L Chloride 101 (98-107) mmol/L Carbon Dioxide 24 (22-30) mmol/L Anion Gap 10 mmol/L BUN 22 H (7-17) mg/dL Creatinine 0.63 (0.52-1.04) mg/dL Est GFR (CKD-EPI)AfAm >90 (>60 ml/min/1.73 sqM) Est GFR (CKD-EPI)NonAf 83 (>60 ml/min/1.73 sqM) Glucose 152 H (74-99) mg/dL Calcium 9.2 (8.4-10.2) mg/dL Magnesium 1.8 (1.6-2.3) mg/dL Total Bilirubin 1.2 (0.2-1.3) mg/dL AST 38 H (14-36) U/L ALT 23 (4-34) U/L Alkaline Phosphatase 71 (38-126) U/L Troponin I (0.000-0.034) ng/mL Total Protein 6.9 (6.3-8.2) g/dL Albumin 4.2 (3.5-5.0) g/dL 08/25/22 Range/Units 10:38 WBC (3.8-10.6) k/uL RBC (3.80-5.40) m/uL Hgb (11.4-16.0) gm/dL Hct (34.0-46.0) % MCV (80.0-100.0) fL MCH (25.0-35.0) pg MCHC (31.0-37.0) g/dL RDW (11.5-15.5) % Plt Count (150-450) k/uL MPV Neutrophils % % Lymphocytes % % Monocytes % % Eosinophils % % Basophils % % Neutrophils # (1.3-7.7) k/uL Lymphocytes # (1.0-4.8) k/uL Monocytes # (0-1.0) k/uL Eosinophils # (0-0.7) k/uL Basophils # (0-0.2) k/uL PT (9.0-12.0) sec INR (<1.2) APTT (22.0-30.0) sec Sodium (137-145) mmol/L Potassium (3.5-5.1) mmol/L Chloride (98-107) mmol/L Carbon Dioxide (22-30) mmol/L Anion Gap mmol/L BUN (7-17) mg/dL Creatinine (0.52-1.04) mg/dL Est GFR (CKD-EPI)AfAm (>60 ml/min/1.73 sqM) Est GFR (CKD-EPI)NonAf (>60 ml/min/1.73 sqM) Glucose (74-99) mg/dL Calcium (8.4-10.2) mg/dL Magnesium (1.6-2.3) mg/dL Total Bilirubin (0.2-1.3) mg/dL AST (14-36) U/L ALT (4-34) U/L Alkaline Phosphatase (38-126) U/L Troponin I 0.429 H* (0.000-0.034) ng/mL Total Protein (6.3-8.2) g/dL Albumin (3.5-5.0) g/dL Disposition Clinical Impression: Fall, Intertrochanteric fracture of right hip, Blunt head injury Disposition: ADMITTED IP TO THIS [facility] Time of Disposition: 13:19
[2022-08-25 10:57] LABS: Basophils % (A) 0 %; Eosinophils # (A) 0.1 k/uL (0-0.7); Eosinophils % (A) 0 %; HCT 45.6 % (34.0-46.0); HGB 14.5 gm/dL (11.4-16.0); Lymphocytes # (A) 0.4 k/uL (1.0-4.8); Lymphocytes % (A) 2 %; MCH 30.9 pg (25.0-35.0); MCHC 31.8 g/dL (31.0-37.0); MCV 97.2 fL (80.0-100.0); Mean Platelet Volume 7.9; Monocytes # (A) 0.6 k/uL (0-1.0); Monocytes % (A) 4 %; Neutrophils # (A) 15.8 k/uL (1.3-7.7); Neutrophils % (A) 93 %; Platelet Count 304 k/uL (150-450); RBC 4.69 m/uL (3.80-5.40); WBC 16.9 k/uL (3.8-10.6)
[2022-08-25 11:07] LABS: Partial Thromboplastin Time 23.7 sec (22.0-30.0); Prothrombin Time 10.7 sec (9.0-12.0)
[2022-08-25 11:22] LABS: ALT 23 U/L (4-34); AST 38 U/L (14-36); African American GFR (CKD) >90 (>60 ml/min/1.73 sqM); Albumin 4.2 g/dL (3.5-5.0); Alkaline Phosphatase 71 U/L (38-126); Anion Gap 10 mmol/L; Blood Urea Nitrogen 22 mg/dL (7-17); Calcium 9.2 mg/dL (8.4-10.2); Carbon Dioxide 24 mmol/L (22-30); Chloride 101 mmol/L (98-107); Glucose 152 mg/dL (74-99); Magnesium 1.8 mg/dL (1.6-2.3); Non-African American GFR(CKD) 83 (>60 ml/min/1.73 sqM); Sodium 135 mmol/L (137-145); Total Bilirubin 1.2 mg/dL (0.2-1.3); Total Protein 6.9 g/dL (6.3-8.2)
--- NOTE | 2022-08-25 11:33 | XR ---
EXAMINATION TYPE: XR chest 1V DATE OF EXAM: 08/25/2022 11:03 AM COMPARISON: Chest radiographs from 01/28/2018 TECHNIQUE: XR chest 1V Frontal view of the chest. CLINICAL INDICATION:Female, 81 years old with history of Chest Pain; FINDINGS: Lungs/Pleura: There is no evidence of pleural effusion, focal consolidation, or pneumothorax. Pulmonary vascularity: Unremarkable. Heart/mediastinum: Cardiomediastinal silhouette is enlarged and stable. Musculoskeletal: No acute osseous pathology. IMPRESSION: No acute cardiopulmonary disease/process.
[2022-08-25 11:36] LABS: Potassium 4.7 mmol/L (3.5-5.1)
--- NOTE | 2022-08-25 11:37 | XR ---
EXAMINATION TYPE: XR Hip RT and AP Pelvis DATE OF EXAM: 08/25/2022 11:02 AM INDICATION: Patient age:Female; 81 years old; Reason for study: Fall COMPARISON: None. TECHNIQUE: The right hip was examined in the frontal and lateral projections and a AP pelvis. FINDINGS/IMPRESSION: Varus angulated right proximal femur fracture. Soft tissues are grossly unremarkable. Mild degenerati on changes throughout the spine.
[2022-08-25] MEDS ORDERED: SODIUM CHLORIDE 0.9% 1,000 ML IV ONE (13:20)
--- NOTE | 2022-08-25 13:31 | P.CONS ---
History of Present Illness - Reason for Consult Consult date: 08/25/22 Medical management - History of Present Illness History of present illness; patient is a 81-year-old lady with past medical history significant for GERD, hyperlipidemia who presented to the ER after a fall. Patient stated that this morning while getting up from her bed she felt lightheaded and lost her balance and fell on her right side. Patient did not lose her consciousness. Patient was found by her neighbor and EMS was called and was brought to the ER Initial lab work done in the ER showed white count of 16.9, hemoglobin 14.5, platelet count 304, sodium 137, potassium 4.7, chloride 101, carbonate site 24, BUN 22, creatinine 0.63, initial troponin was elevated at 0.429 X-ray of the right hip showed right proximal femur fracture. Patient was admitted to orthopedic service REVIEW OF SYSTEMS: CONSTITUTIONAL: No fever, no malaise, no fatigue. HEENT: No recent visual problems or hearing problems. Denied any sore throat. CARDIOVASCULAR: No chest pain, orthopnea, PND, no palpitations, no syncope. PULMONARY: No shortness of breath, no cough, no hemoptysis. GASTROINTESTINAL: No diarrhea, no nausea, no vomiting, no abdominal pain. NEUROLOGICAL: No headaches, no weakness, no numbness. HEMATOLOGICAL: Denies any bleeding or petechiae. GENITOURINARY: Denies any burning micturition, frequency, or urgency. MUSCULOSKELETAL/RHEUMATOLOGICAL: Complain of pain in right hip ENDOCRINE: Denies any polyuria or polydipsia. The rest of the 14-point review of systems is negative. PHYSICAL EXAMINATION: GENERAL: The patient is alert and oriented x3, not in any acute distress. Well developed, well nourished. HEENT: Pupils are round and equally reacting to light. EOMI. No scleral icterus. No conjunctival pallor. Normocephalic, atraumatic. No pharyngeal erythema. No thyromegaly. CARDIOVASCULAR: S1 and S2 present. No murmurs, rubs, or gallops. PULMONARY: Chest is clear to auscultation, no wheezing or crackles. ABDOMEN: Soft, nontender, nondistended, normoactive bowel sounds. No palpable organomegaly. MUSCULOSKELETAL: Right hip externally rotated EXTREMITIES: No cyanosis, clubbing, or pedal edema. NEUROLOGICAL: Gross neurological examination did not reveal any focal deficits. SKIN: No rashes. Assessment and plan Right hip fracture Fall Elevated troponin Plan; Monitor vital signs monitor CBC Telemetry monitoring Trend troponins 2-D echo ordered Continue pain management per orthopedic Continue IV fluids Continue DVT prophylaxis per orthopedics Consult cardiology, patient will be needing stat echo and cardiology clearance prior to surgery Past Medical History Past Medical History: GERD/Reflux, Hearing Disorder / Deafness, Hyperlipidemia Additional Past Medical History / Comment(s): hx stomach ulcers, h pylori History of Any Multi-Drug Resistant Organisms: None Reported Past Surgical History: Hysterectomy Additional Past Surgical History / Comment(s): eye surg. years ago, carotid endarterectomy Past Anesthesia/Blood Transfusion Reactions: No Reported Reaction Past Psychological History: No Psychological Hx Reported Past Alcohol Use History: None Reported Additional Past Alcohol Use History / Comment(s): smoker for 60 years 1 ppd Past Drug Use History: None Reported - Past Family History Father Family Medical History: Cancer Sister(s) Family Medical History: Cancer Brother(s) Family Medical History: Cancer Medications and Allergies Home Medications Medication Instructions Recorded Confirmed Type Atorvastatin [Lipitor] 10 mg PO DAILY 03/08/17 08/25/22 History Ferrous Sulfate [Feosol] 325 mg PO DAILY 06/10/18 08/25/22 History Pantoprazole Sodium [Protonix] 40 mg PO DAILY 02/03/19 08/25/22 History Cholecalciferol [Vitamin D3 (25 25 mcg PO DAILY 08/25/22 08/25/22 History Mcg = 1000 Iu)] Allergies Allergy/AdvReac Type Severity Reaction Status Date / Time No Known Allergies Allergy Verified 08/25/22 12:19 Physical Exam Vitals: Vital Signs Temp Pulse Resp BP Pulse Ox 08/25/22 10:22 97.1 F L 82 18 137/54 98 Intake and Output 08/24/22 08/25/22 08/25/22 22:59 06:59 14:59 Other: Weight 54.431 kg Results CBC & Chem 7: 08/25/22 10:38 08/25/22 10:38 Labs: Abnormal Lab Results - Last 24 Hours (Table) 08/25/22 08/25/22 08/25/22 Range/Units 10:38 10:38 10:38 WBC 16.9 H (3.8-10.6) k/uL Neutrophils # 15.8 H (1.3-7.7) k/uL Lymphocytes # 0.4 L (1.0-4.8) k/uL Sodium 135 L (137-145) mmol/L BUN 22 H (7-17) mg/dL Glucose 152 H (74-99) mg/dL AST 38 H (14-36) U/L Troponin I 0.429 H* (0.000-0.034) ng/mL
--- NOTE | 2022-08-25 14:40 | CT ---
EXAMINATION TYPE: CT hip RT wo con CT DLP: 410.4 mGycm, Automated exposure control for dose reduction was used. DATE OF EXAM: 08/25/2022 2:17 PM COMPARISON: Extremity radiograph same day. CLINICAL INDICATION:Female, 81 years old with history of Trauma; PHH, fx TECHNIQUE: Axial images were obtained of the right hip . Additional coronal and sagittal reformatted images and soft tissue and bone window were obtained for review. . Contrast used: None Oral contrast used: None FINDINGS: Comminuted right proximal femur fracture at the intertrochanteric/basicervical region. Larg e lesser trochanter fragment is present. There is varus deformity. Shortening is also present. No talon dence of fracture of the acetabulum or visualized pelvic structures. Grade 1 anterolisthesis borderline grade 2 of L5 on S1. Anderson catheter in place. Few scattered coloni c diverticula. Atherosclerosis of the arterial vasculature. IMPRESSION: Comminuted right proximal hip fracture involving the intertrochanteric/base of basicervical femoral n jose a. Large fragment involving the greater trochanter and lesser trochanter are present.
[2022-08-26] MEDS: HYDROcodone/APAP 5-325MG 1 EACH TAB PO PRN (05:00)
--- NOTE | 2022-08-26 07:56 | P.HPOR ---
History of Present Illness H&P Date: 08/26/22 The patient is a very pleasant 81-year-old female who was admitted under my care with a right hip fracture. According to the patient she got up yesterday, became lightheaded, and fell resulting in an isolated injury to her right hip. She had immediate pain and was unable to ambulate. She was found by her neighbor who called EMS and brought her to the emergency department. She was admitted under my care with consultations placed internal medicine and cardiology. This morning she is complaining of isolated pain in her right hip. She denies hitting her head or losing consciousness. She denies chest pain or shortness of breath. Past Medical History Past Medical History: GERD/Reflux, Hearing Disorder / Deafness, Hyperlipidemia Additional Past Medical History / Comment(s): hx stomach ulcers, h pylori History of Any Multi-Drug Resistant Organisms: None Reported Past Surgical History: Hysterectomy Additional Past Surgical History / Comment(s): eye surg. years ago, carotid endarterectomy Past Anesthesia/Blood Transfusion Reactions: No Reported Reaction Past Psychological History: No Psychological Hx Reported Smoking Status: Current every day smoker Past Alcohol Use History: None Reported Additional Past Alcohol Use History / Comment(s): smoker for 60 years 1 ppd Past Drug Use History: None Reported - Past Family History Father Family Medical History: Cancer Sister(s) Family Medical History: Cancer Brother(s) Family Medical History: Cancer Medications and Allergies Home Medications Medication Instructions Recorded Confirmed Type Atorvastatin [Lipitor] 10 mg PO DAILY 03/08/17 08/25/22 History Ferrous Sulfate [Feosol] 325 mg PO DAILY 06/10/18 08/25/22 History Pantoprazole Sodium [Protonix] 40 mg PO DAILY 02/03/19 08/25/22 History Cholecalciferol [Vitamin D3 (25 25 mcg PO DAILY 08/25/22 08/25/22 History Mcg = 1000 Iu)] Allergies Allergy/AdvReac Type Severity Reaction Status Date / Time No Known Allergies Allergy Verified 08/25/22 12:19 Physical Examination The patient is resting comfortably in bed. She is in no apparent distress and is able to answer questions. Her head is normocephalic and atraumatic. She demonstrates nonlabored breathing with symmetric chest expansion. Her cervical spine is nontender. She has no obvious deformities in the upper extremities and no tenderness to palpation. There are no deformities the left lower extremity which is nontender to palpation. A focused exam of the right lower extremity was conducted. On inspection does shortened and externally rotated. She has pain with any attempts at passive range of motion of the leg. Her thigh and calf are soft. Motor and sensory function are intact. Results X-rays and computed tomography scan of the right hip show a displaced and comminuted basicervical femoral neck fracture. There is marked osteopenia - Labs Labs: Abnormal Lab Results - Last 24 Hours (Table) 08/25/22 08/25/22 08/25/22 Range/Units 10:38 10:38 10:38 WBC 16.9 H (3.8-10.6) k/uL Neutrophils # 15.8 H (1.3-7.7) k/uL Lymphocytes # 0.4 L (1.0-4.8) k/uL Sodium 135 L (137-145) mmol/L BUN 22 H (7-17) mg/dL Glucose 152 H (74-99) mg/dL AST 38 H (14-36) U/L Troponin I 0.429 H* (0.000-0.034) ng/mL 08/25/22 Range/Units 15:08 WBC (3.8-10.6) k/uL Neutrophils # (1.3-7.7) k/uL Lymphocytes # (1.0-4.8) k/uL Sodium (137-145) mmol/L BUN (7-17) mg/dL Glucose (74-99) mg/dL AST (14-36) U/L Troponin I 0.484 H* (0.000-0.034) ng/mL H & H 08/25/22 Range/Units 10:38 Hgb 14.5 (11.4-16.0) gm/dL Hct 45.6 (34.0-46.0) % Coagulation 08/25/22 Range/Units 10:38 INR 1.0 (<1.2) Result Diagrams: 08/25/22 10:38 08/25/22 10:38 Assessment and Plan Assessment: Right basicervical femoral neck fracture Plan: The patient has a basicervical femoral neck fracture with extension down to the lesser trochanter which appears most amenable to operative fixation with a gamma nail. I briefly discussed the procedure with the patient and answered her questions regarding the surgery, recovery, and potential complications. She is presently nothing by mouth and on bedrest in anticipation for surgery. Internal medicine has seen the patient and due to elevated troponins has requested a formal cardiology consult. We'll plan on surgery today if she is cleared by cardiology and if she needs further cardiac workup we'll plan on surgery tomorrow or whenever she is cleared. In the interim she is to remain strict nonweightbearing on the right lower extremity. Time with Patient: Greater than 30
--- NOTE | 2022-08-26 08:40 | P.CRDCN ---
History of Present Illness Consult date: 08/26/22 Chief complaint: Preoperative cardiac assessment History of present illness: The pyraodg-[id number]-bbz female patient was extremely confused with a change in mental status and poor historian was brought to the hospital after she fell at home and fractured her right hip. We consulted to see the patient for preoperative cardiac assessment before noncardiac surgery. The patient is unable to give me any history. She is known to have dyslipidemia and carotid atherosclerosis but no history of coronary artery disease or congestive heart failure or cardiac arrhythmia. Currently she is not experiencing any chest pain or chest discomfort. She does not seems to be in any congestive heart failure. She has been maintaining normal sinus mechanism. She underwent further workup including EKG showing sinus mechanism with nonspecific changes likely secondary to left ventricular hypertrophy. Also she underwent cardiac enzymes came in to be slightly elevated. The patient did not have any symptoms of chest pain or chest discomfort. The rest of the blood work overall came in to be unremarkable. The x-ray showed evidence of right hip fracture. Examination is remarkable for stable vital signs with a regular rhythm and systolic murmur at the right upper sternal border. Assessment Status post fall with right hip fracture Evidence of myocardial injury was no evidence of ischemia. Further risk stratification by obtaining an echocardiogram Dyslipidemia Carotid atherosclerosis Plan I would obtain an echocardiogram to assess ejection fraction and assess for any wall motion abnormalities Further recommendation to follow the echocardiogram Add small dose of aspirin to the current medical regimen Continue statin We will continue following up with the patient Past Medical History Past Medical History: GERD/Reflux, Hearing Disorder / Deafness, Hyperlipidemia Additional Past Medical History / Comment(s): hx stomach ulcers, h pylori History of Any Multi-Drug Resistant Organisms: None Reported Past Surgical History: Hysterectomy Additional Past Surgical History / Comment(s): eye surg. years ago, carotid endarterectomy Past Anesthesia/Blood Transfusion Reactions: No Reported Reaction Past Psychological History: No Psychological Hx Reported Smoking Status: Current every day smoker Past Alcohol Use History: None Reported Additional Past Alcohol Use History / Comment(s): smoker for 60 years 1 ppd Past Drug Use History: None Reported - Past Family History Father Family Medical History: Cancer Sister(s) Family Medical History: Cancer Brother(s) Family Medical History: Cancer Medications and Allergies Home Medications Medication Instructions Recorded Confirmed Type Atorvastatin [Lipitor] 10 mg PO DAILY 03/08/17 08/25/22 History Ferrous Sulfate [Feosol] 325 mg PO DAILY 06/10/18 08/25/22 History Pantoprazole Sodium [Protonix] 40 mg PO DAILY 02/03/19 08/25/22 History Cholecalciferol [Vitamin D3 (25 25 mcg PO DAILY 08/25/22 08/25/22 History Mcg = 1000 Iu)] Allergies Allergy/AdvReac Type Severity Reaction Status Date / Time No Known Allergies Allergy Verified 08/25/22 12:19 Physical Exam Vitals: Vital Signs Temp Pulse Pulse Resp BP BP Pulse Ox 08/26/22 04:00 97.6 F 95 16 103/58 94 L 08/26/22 01:52 89 16 08/26/22 00:00 97.2 F L 89 16 106/64 98 08/25/22 20:00 97.1 F L 65 15 97/61 99 08/25/22 16:15 98 08/25/22 16:00 98.0 F 85 18 124/66 95 08/25/22 14:45 85 18 158/75 98 08/25/22 12:00 85 18 180/84 98 08/25/22 11:00 80 18 151/91 98 08/25/22 10:22 97.1 F L 82 18 137/54 98 Intake and Output 08/25/22 08/26/22 08/26/22 22:59 06:59 14:59 Output Total 1999 600 Balance -2000 -600 Output: Urine 2000 600 Other: Voiding Method External Catheter External Catheter # Bowel Movements 0 Weight 54.431 kg Results 08/25/22 10:38 08/25/22 10:38 Cardiac Enzymes 08/25/22 08/25/22 08/25/22 Range/Units 10:38 10:38 15:08 AST 38 H (14-36) U/L Troponin I 0.429 H* 0.484 H* (0.000-0.034) ng/mL Coagulation 08/25/22 Range/Units 10:38 PT 10.7 (9.0-12.0) sec APTT 23.7 (22.0-30.0) sec CBC 08/25/22 Range/Units 10:38 WBC 16.9 H (3.8-10.6) k/uL RBC 4.69 (3.80-5.40) m/uL Hgb 14.5 (11.4-16.0) gm/dL Hct 45.6 (34.0-46.0) % Plt Count 304 (150-450) k/uL Comprehensive Metabolic Panel 08/25/22 Range/Units 10:38 Sodium 135 L (137-145) mmol/L Potassium 4.7 (3.5-5.1) mmol/L Chloride 101 (98-107) mmol/L Carbon Dioxide 24 (22-30) mmol/L BUN 22 H (7-17) mg/dL Creatinine 0.63 (0.52-1.04) mg/dL Glucose 152 H (74-99) mg/dL Calcium 9.2 (8.4-10.2) mg/dL AST 38 H (14-36) U/L ALT 23 (4-34) U/L Alkaline Phosphatase 71 (38-126) U/L Total Protein 6.9 (6.3-8.2) g/dL Albumin 4.2 (3.5-5.0) g/dL Current Medications Generic Name Dose Route Start Last Admin Trade Name Freq PRN Reason Stop Dose Admin Hydrocodone Bitart/Acetaminophen 1 each 08/26/22 04:55 08/26/22 05:00 Hydrocodone/Apap 5-325mg 1 Each Tab PO 1 each Q6HR PRN Administration Pain Atorvastatin Calcium 10 mg 08/26/22 09:00 Atorvastatin 10 Mg Tab PO DAILY OBDULIO Cholecalciferol 25 mcg 08/26/22 09:00 Cholecalciferol 25 Mcg (1000 Iu) Tablet PO DAILY OBDULIO Ferrous Sulfate 325 mg 08/26/22 12:00 Ferrous Sulfate 325 Mg Tab PO DAILY@1200 [facility] Pantoprazole Sodium 40 mg 08/26/22 09:00 Pantoprazole 40 Mg Tablet PO DAILY OBDULIO Intake and Output 08/25/22 08/26/22 08/26/22 22:59 06:59 14:59 Output Total 1999 600 Balance -1999 - Output: Urine 1999 600 Other: Voiding Method External Catheter External Catheter # Bowel Movements 0 Weight 54.431 kg 08/25/22 10:38 08/25/22 10:38
[2022-08-26] MEDS: ATORVASTATIN 10 MG TAB PO SCH (09:26)
[2022-08-26] MEDS: ASPIRIN 81 MG PO SCH (09:26)
[2022-08-26] MEDS: PANTOPRAZOLE 40 MG TABLET PO SCH (09:26)
[2022-08-26] MEDS: CHOLECALCIFEROL 25 MCG (1000 IU) TABLET PO SCH (09:26)
[2022-08-26] MEDS ORDERED: LORazepam 2 MG/ML INJ IV STA (11:51)
[2022-08-26] MEDS: FERROUS SULFATE 325 MG TAB PO SCH (12:04)
[2022-08-26] MEDS ORDERED: IV FLUID CONTINUATION 1,000 ML IV ONE (12:38)
[2022-08-26] MEDS ORDERED: LORazepam 2 MG/ML INJ IV PRN (13:46)
--- NOTE | 2022-08-26 13:48 | P.PN ---
Subjective Progress Note Date: 08/26/22 patient is a 81-year-old lady with past medical history significant for GERD, hyperlipidemia who presented to the ER after a fall. Patient stated that this morning while getting up from her bed she felt lightheaded and lost her balance and fell on her right side. Patient did not lose her consciousness. Patient was found by her neighbor and EMS was called and was brought to the ER Initial lab work done in the ER showed white count of 16.9, hemoglobin 14.5, platelet count 304, sodium 137, potassium 4.7, chloride 101, carbonate site 24, BUN 22, creatinine 0.63, initial troponin was elevated at 0.429 X-ray of the right hip showed right proximal femur fracture. Patient was admitted to orthopedic service 08/26. Patient seen and examined. Patient is very agitated, confused, trying to get out of the bed and walk on her broken hip. Patient given Ativan for agitation, doing much better afterwards REVIEW OF SYSTEMS: Cannot be obtained because of patient's current mental status PHYSICAL EXAMINATION: GENERAL: The patient is alert to self, agitated, not in any acute distress. Well developed, well nourished. HEENT: Pupils are round and equally reacting to light. EOMI. No scleral icterus. No conjunctival pallor. Normocephalic, atraumatic. No pharyngeal erythema. No thyromegaly. CARDIOVASCULAR: S1 and S2 present. No murmurs, rubs, or gallops. PULMONARY: Chest is clear to auscultation, no wheezing or crackles. ABDOMEN: Soft, nontender, nondistended, normoactive bowel sounds. No palpable organomegaly. MUSCULOSKELETAL: Right hip tender, externally rotated EXTREMITIES: No cyanosis, clubbing, or pedal edema. NEUROLOGICAL: Gross neurological examination did not reveal any focal deficits. SKIN: No rashes. Assessment and plan Right hip fracture Fall Elevated troponin Acute delirium Monitor vital signs Monitor CBC Monitor CMP Continue telemetry monitoring 2-D echo pending. Follow-up on cardiology recommendations regarding cardiac clearance Continue pain management per orthopedic Continue IV fluids Add Seroquel. Continue when necessary Ativan for agitation Continue DVT prophylaxis per orthopedics DVT prophylaxis: Objective - Vital Signs Vital signs: Vital Signs Temp 97.6 F 08/26/22 04:00 Pulse 95 08/26/22 04:00 Resp 16 08/26/22 04:00 BP 103/58 08/26/22 04:00 Pulse Ox 95 08/26/22 08:55 FiO2 Intake & Output 08/25/22 08/26/22 08/26/22 18:59 06:59 18:59 Output Total 1600 1000 Balance -1600 -1000 Weight 54.431 kg Output: Urine 1600 1000 Other: Voiding Method External Catheter # Bowel Movements 0 - Labs CBC & Chem 7: 08/25/22 10:38 08/25/22 10:38 Labs: Abnormal Lab Results - Last 24 Hours (Table) 08/25/22 08/25/22 08/25/22 Range/Units 10:38 10:38 10:38 WBC 16.9 H (3.8-10.6) k/uL Neutrophils # 15.8 H (1.3-7.7) k/uL Lymphocytes # 0.4 L (1.0-4.8) k/uL Sodium 135 L (137-145) mmol/L BUN 22 H (7-17) mg/dL Glucose 152 H (74-99) mg/dL AST 38 H (14-36) U/L Troponin I 0.429 H* (0.000-0.034) ng/mL 08/25/22 Range/Units 15:08 WBC (3.8-10.6) k/uL Neutrophils # (1.3-7.7) k/uL Lymphocytes # (1.0-4.8) k/uL Sodium (137-145) mmol/L BUN (7-17) mg/dL Glucose (74-99) mg/dL AST (14-36) U/L Troponin I 0.484 H* (0.000-0.034) ng/mL
[2022-08-26 13:49] LABS: Appearance,Urine Cloudy (Clear); Bacteria,Urine Rare /hpf; Bilirubin,Urine Negative (Negative); Blood,Urine Large (Negative); Color,Urine Yellow; Glucose,Urine (UA) Negative (Negative); Ketones,Urine Trace (Negative); Leukocyte Esterase,Urine Large (Negative); Mucus,Urine Occasional /hpf; Nitrite,Urine Negative (Negative); PH, Urine 5.5 (5.0-8.0); Protein,Urine 1+ (Negative); RBC,Urine >182 /hpf (0-5); Specific Gravity,Urine 1.023 (1.001-1.035); Squamous Epithelial Cell,Urine 1 /hpf (0-4); Urobilinogen,Urine <2.0 mg/dL (<2.0); WBC,Urine 69 /hpf (0-5)
--- NOTE | 2022-08-26 15:21 | CA ---
Transthoracic Echo Report Name: Gloria Garcia Age: 81 Gender: F : 1940 Exam Date: 08/25/2022 12:39 Exam Location: [facility] Ht (in): 59 Wt (lb): 120 Ordering Physician: Elian Lazar MD Attending/Referring Phys: Sales And Events Coordinator Kirsten Tovar RDCS Procedure CPT: Indications: troponin elevation Cardiac Hx: Technical Quality: Fair Contrast 1: Total Dose (mL): Contrast 2: Total Dose (mL): MEASUREMENTS (Male / Female) Normal Values 2D ECHO LV Diastolic Diameter PLAX 4.5 cm 4.2 - 5.9 / 3.9 - 5.3 cm LV Systolic Diameter PLAX 3.0 cm IVS Diastolic Thickness 1.0 cm 0.6 - 1.0 / 0.6 - 0.9 cm LVPW Diastolic Thickness 1.0 cm 0.6 - 1.0 / 0.6 - 0.9 cm LV Relative Wall Thickness 0.4 RV Internal Dim ED PLAX 2.3 cm LA Systolic Diameter LX 3.3 cm 3.0 - 4.0 / 2.7 - 3.8 cm LV Diastolic Volume MOD BP 41.5 cm??? 67 - 155 / 56 - 104 cm??? LV Systolic Volume MOD BP 15.7 cm??? 22 - 58 / 19 - 49 cm??? LV Ejection Fraction MOD BP 62.2 % >= 55 % LV Diastolic Volume MOD 4C 42.3 cm??? LV Systolic Volume MOD 4C 23.5 cm??? LV Ejection Fraction MOD 4C 44.4 % LV Diastolic Length 4C 6.5 cm LV Systolic Length 4C 5.5 cm LV Diastolic Volume MOD 2C 38.0 cm??? LV Systolic Volume MOD 2C 9.9 cm??? LV Ejection Fraction MOD 2C 73.9 % LV Diastolic Length 2C 5.1 cm LV Systolic Length 2C 4.8 cm LA Volume 47.6 cm??? 18 - 58 / 22 - 52 cm??? M-MODE Aortic Root Diameter MM 3.8 cm AV Cusp Separation MM 2.1 cm DOPPLER AV Peak Velocity 188.4 cm/s AV Peak Gradient 14.2 mmHg AV Mean Velocity 132.7 cm/s AV Mean Gradient 8.0 mmHg AV Velocity Time Integral 37.9 cm AI Peak Velocity 418.0 cm/s AI Peak Gradient 69.9 mmHg AI Pressure Half Time 460.1 ms MV Area PHT 7.9 cm??? Mitral E Point Velocity 61.6 cm/s Mitral A Point Velocity 166.3 cm/s Mitral E to A Ratio 0.4 MV Deceleration Time 95.6 ms MV E' Velocity 2.1 cm/s Mitral E to MV E' Ratio 29.7 TR Peak Velocity 318.0 cm/s TR Peak Gradient 40.5 mmHg Right Ventricular Systolic Press 44.1 mmHg PV Peak Velocity 222.2 cm/s PV Peak Gradient 19.7 mmHg FINDINGS Left Ventricle Left ventricular ejection fraction is estimated at 50-55 %. Left ventricular cavity size normal. Left ventricular wall thickness normal. Right Ventricle Normal right ventricular size and function. Right ventricular systolic pressure within normal limits. Right Atrium Normal right atrial size. Left Atrium Normal left atrial size. Mitral Valve Mitral annular calcification. Mild mitral regurgitation. Aortic Valve Trileaflet aortic valve. Aortic valve sclerosis. [id number] aortic regurgitation. Tricuspid Valve Structurally normal tricuspid valve. Mild tricuspid regurgitation. Pulmonic Valve Structurally normal pulmonic valve. No pulmonic regurgitation. Pericardium Normal pericardium. No pericardial effusion. Aorta Mild aortic dilatation at the level of the sinuses of valsalva 38 mm CONCLUSIONS Normal LV systolic function Aortic sclerosis with [id number] aortic insufficiency Previewed by: Dr. Bhaskar Britt MD (Electronically Signed) Final Date: 26 August 2022 15:20
[2022-08-26] MEDS: QUEtiapine 25 MG TAB PO SCH (20:33)
[2022-08-27] MEDS: PANTOPRAZOLE 40 MG TABLET PO SCH (08:14)
[2022-08-27] MEDS: ASPIRIN 81 MG PO SCH ×2 (08:14→21:19)
[2022-08-27] MEDS: CHOLECALCIFEROL 25 MCG (1000 IU) TABLET PO SCH (08:14)
[2022-08-27] MEDS: ATORVASTATIN 10 MG TAB PO SCH (08:14)
[2022-08-27 08:17] LABS: Basophils % (A) 0 %; Eosinophils # (A) 0.1 k/uL (0-0.7); Eosinophils % (A) 0 %; HGB 12.1 gm/dL (11.4-16.0); Lymphocytes % (A) 7 %; MCH 30.7 pg (25.0-35.0); MCHC 31.7 g/dL (31.0-37.0); MCV 96.7 fL (80.0-100.0); Monocytes # (A) 0.8 k/uL (0-1.0); Monocytes % (A) 6 %; Neutrophils # (A) 12.1 k/uL (1.3-7.7); Neutrophils % (A) 86 %; Platelet Count 255 k/uL (150-450); RBC 3.93 m/uL (3.80-5.40); RDW 12.9 % (11.5-15.5); WBC 14.1 k/uL (3.8-10.6)
[2022-08-27 08:39] LABS: ALT 38 U/L (4-34); AST 108 U/L (14-36); African American GFR (CKD) >90 (>60 ml/min/1.73 sqM); Albumin 3.1 g/dL (3.5-5.0); Alkaline Phosphatase 65 U/L (38-126); Anion Gap 4 mmol/L; Blood Urea Nitrogen 23 mg/dL (7-17); Calcium 8.6 mg/dL (8.4-10.2); Carbon Dioxide 25 mmol/L (22-30); Chloride 103 mmol/L (98-107); Glucose 112 mg/dL (74-99); Non-African American GFR(CKD) 81 (>60 ml/min/1.73 sqM); Potassium 4.1 mmol/L (3.5-5.1); Sodium 132 mmol/L (137-145); Total Bilirubin 1.8 mg/dL (0.2-1.3); Total Protein 5.5 g/dL (6.3-8.2)
[2022-08-27] MEDS: FERROUS SULFATE 325 MG TAB PO SCH (12:20)
--- NOTE | 2022-08-27 13:13 | P.PN ---
Subjective Progress Note Date: 08/27/22 The dxbtasw-[id number] female patient was extremely confused with a change in mental status and poor historian was brought to the hospital after she fell at home and fractured her right hip. We consulted to see the patient for preoperative cardiac assessment before noncardiac surgery. The patient is unabl e to give me any history. She is known to have dyslipidemia and carotid atherosclerosis but no history of coronary artery disease or congestive heart failure or cardiac arrhythmia. Currently she is not experiencing any chest pain or chest discomfort. She does not seems to be in any congestive heart failure. She has been maintaining normal sinus mechanism. She underwent further workup including EKG showing sinus mechanism with nonspecific changes likely secondary to left ventricular hypertrophy. Also she underwent cardiac enzymes came in to be slightly elevated. The patient did not have any symptoms of chest pain or chest discomfort. The rest of the blood work overall came in to be un remarkable. The x-ray showed evidence of right hip fracture. 08/27 Echocardiogram reveals normal LV systolic function. Aortic sclerosis with mild to moderate aortic insufficiency. Patient is scheduled for right hip nail today. Blood pressure and heart rate have been stable. Repeat blood work re veals WBC 14.1, hemoglobin 12.1. Sodium 132, BUN 23, creatinine 0.69 potassium 4.1. Examination is remarkable for stable vital signs with a regular rhythm and systolic murmur at the right upper sternal border. Assessment Status post fall with right hip fracture Evidence of myocardial injury was no evidence of ischemia. No reduced EF to indicate myocardial ischemia. Dyslipidemia Carotid atherosclerosis Plan Continue current cardiac medications Patient is cleared for surgical intervention which is scheduled for today. Cardiology we will sign off and follow on an as-needed basis. Please reconsult for any new concerns. Nurse practitioner note has been reviewed, I agree with the documented findings and plan of care. Patient was seen and examined. Objective - Vital Signs Vital signs: Vital Signs Temp 97.8 F 08/27/22 04:18 Pulse 93 08/27/22 04:18 Resp 20 08/27/22 04:18 BP 123/60 08/27/22 04:18 Pulse Ox 94 L 08/27/22 04:18 FiO2 Intake & Output 08/26/22 08/27/22 08/27/22 18:59 06:59 18:59 Output Total 550 Balance -550 Output: Urine 550 Other: Voiding Method External Catheter Indwelling Catheter - Labs CBC & Chem 7: 08/27/22 07:51 08/27/22 07:51 Labs: Abnormal Lab Results - Last 24 Hours (Table) 08/26/22 08/27/22 08/27/22 Range/Units 11:58 07:51 07:51 WBC 14.1 H (3.8-10.6) k/uL Neutrophils # 12.1 H (1.3-7.7) k/uL Sodium 132 L (137-145) mmol/L BUN 23 H (7-17) mg/dL Glucose 112 H (74-99) mg/dL Total Bilirubin 1.8 H (0.2-1.3) mg/dL AST 108 H (14-36) U/L ALT 38 H (4-34) U/L Total Protein 5.5 L (6.3-8.2) g/dL Albumin 3.1 L (3.5-5.0) g/dL Urine Appearance Cloudy H (Clear) Urine Protein 1+ H (Negative) Urine Ketones Trace H (Negative) Urine Blood Large H (Negative) Ur Leukocyte Esterase Large H (Negative) Urine RBC >182 H (0-5) /hpf Urine WBC 69 H (0-5) /hpf Urine Bacteria Rare H (None) /hpf Urine Mucus Occasional H (None) /hpf
--- NOTE | 2022-08-27 14:45 | P.PN ---
Subjective Progress Note Date: 08/27/22 patient is a 81-year-old lady with past medical history significant for GERD, hyperlipidemia who presented to the ER after a fall. Patient stated that this morning while getting up from her bed she felt lightheaded and lost her balance and fell on her right side. Patient did not lose her consciousness. Patient was found by her neighbor and EMS was called and was brought to the ER Initial lab work done in the ER showed white count of 16.9, hemoglobin 14.5, platelet count 304, sodium 137, potassium 4.7, chloride 101, carbonate site 24, BUN 22, creatinine 0.63, initial troponin was elevated at 0.429 X-ray of the right hip showed right proximal femur fracture. Patient was admitted to orthopedic service 08/26. Patient seen and examined. Patient is very agitated, confused, trying to get out of the bed and walk on her broken hip. Patient given Ativan for agitation, doing much better afterwards 08/27. Patient seen and examined. Patient no longer stated, patient is cooperative. Currently nothing by mouth waiting on surgery REVIEW OF SYSTEMS: Cannot be obtained because of patient's current mental status PHYSICAL EXAMINATION: GENERAL: The patient is alert to self, , not in any acute distress. Well developed, well nourished. HEENT: Pupils are round and equally reacting to light. EOMI. No scleral icterus. No conjunctival pallor. Normocephalic, atraumatic. No pharyngeal erythema. No thyromegaly. CARDIOVASCULAR: S1 and S2 present. No murmurs, rubs, or gallops. PULMONARY: Chest is clear to auscultation, no wheezing or crackles. ABDOMEN: Soft, nontender, nondistended, normoactive bowel sounds. No palpable organomegaly. MUSCULOSKELETAL: Right hip tender, externally rotated EXTREMITIES: No cyanosis, clubbing, or pedal edema. NEUROLOGICAL: Gross neurological examination did not reveal any focal deficits. SKIN: No rashes. Assessment and plan Right hip fracture Fall Elevated troponin Acute delirium Monitor vital signs Monitor CBC Monitor CMP Continue telemetry monitoring 2-D echo reviewed by cardiology, they cleared the patient for surgery Continue pain management per orthopedic Continue IV fluids Continue Seroquel. Continue DVT prophylaxis per orthopedics Currently nothing by mouth, going for surgery today DVT prophylaxis: Objective - Vital Signs Vital signs: Vital Signs Temp 97.3 F L 08/27/22 08:00 Pulse 96 06/19/23 12:00 Resp 20 08/27/22 12:00 BP 130/62 08/27/22 12:00 Pulse Ox 96 08/27/22 12:00 FiO2 Intake & Output 08/26/22 08/27/22 08/27/22 18:59 06:59 18:59 Output Total 550 Balance -550 Output: Urine 550 Other: Voiding Method External Catheter Indwelling Catheter Indwelling Catheter - Labs CBC & Chem 7: 08/27/22 07:51 08/27/22 07:51 Labs: Abnormal Lab Results - Last 24 Hours (Table) 08/27/22 08/27/22 Range/Units 07:51 07:51 WBC 14.1 H (3.8-10.6) k/uL Neutrophils # 12.1 H (1.3-7.7) k/uL Sodium 132 L (137-145) mmol/L BUN 23 H (7-17) mg/dL Glucose 112 H (74-99) mg/dL Total Bilirubin 1.8 H (0.2-1.3) mg/dL AST 108 H (14-36) U/L ALT 38 H (4-34) U/L Total Protein 5.5 L (6.3-8.2) g/dL Albumin 3.1 L (3.5-5.0) g/dL
[2022-08-27] MEDS ORDERED: LACTATED RINGERS 1,000 ML IV ONE (17:17)
[2022-08-27] MEDS ORDERED: ONDANSETRON 4 MG/2 ML VIAL IVP ONE (17:30)
[2022-08-27] MEDS ORDERED: HYDROmorphone (PF) 1 MG/ML ONE (17:31)
[2022-08-27] MEDS ORDERED: NEOSTIGMINE 1 MG/ML 10 ML VIAL ONE (17:31)
[2022-08-27] MEDS ORDERED: PHENYLEPHRINE-0.9% NACL SYG 1,000 MCG/10 ML SYRINGE ONE (17:31)
[2022-08-27] MEDS ORDERED: LIDOCAINE 2% INJ 20 MG/ML (2 ML VIAL) ONE (17:31)
[2022-08-27] MEDS ORDERED: SUCCINYLCHOLINE CHLORIDE 200 MG/10 ML VIAL IV ONE (17:31)
[2022-08-27] MEDS ORDERED: fentaNYL (PF) 50 MCG/ML 2 ML AMP ONE (17:31)
[2022-08-27] MEDS ORDERED: GLYCOPYRROLATE 0.2 MG/ML 2 ML VIAL ONE (17:31)
[2022-08-27] MEDS ORDERED: ROCURONIUM 10 MG/ML (5 ML VIAL) IV ONE (17:31)
[2022-08-27] MEDS ORDERED: PROPOFOL 10 MG/ML 20 ML VIAL IV ONE (17:31)
[2022-08-27] MEDS ORDERED: hydrOXYzine pamoate 25 MG CAP PO PRN (18:56)
[2022-08-27] MEDS ORDERED: HYDROmorphone 0.5 MG/0.5 ML SYRINGE IVP PRN ×3 (18:56)
[2022-08-27] MEDS ORDERED: NALOXONE 0.4 MG/ML 1 ML VIAL IV PRN (18:56)
--- NOTE | 2022-08-27 18:57 | P.OP ---
Date of Procedure: 08/27/22 Preoperative Diagnosis: 1. Comminuted peritrochanteric right hip fracture 2. Dementia 3. Osteoporosis with prior fragility fracture 4. Coronary artery disease Postoperative Diagnosis: Same Procedure(s) Performed: Operative fixation of right intertrochanteric hip fracture with short intramedullary hip screw Anesthesia: CHANDRIKA Surgeon: Gil Whitley Python Engineer #1: Citlali Parks Estimated Blood Loss (ml): 100 IV fluids (ml): 400 Pathology: none sent Condition: stable Disposition: PACU Indications for Procedure: I met with the patient and their family preoperatively to discuss their injury and treatment options. They have an extra-capsular, intertrochanteric hip fracture and my recommendation was to stabilize the fracture with an intramedullary hip screw to facilitate early mobilization. We discussed the potential risks and complications of this surgical procedure including but certainly not limited to risks from anesthesia, superficial infection, deep infection, fracture nonunion, fracture malunion, hardware failure including broken hardware, varus collapse with lag screw cut out of the femoral head, progression of hip arthritis, limb length discrepancy, symptomatic hardware, need for further surgery including hardware removal and conversion to arthroplasty, DVT, PE, acute coronary event, pressure ulcers, urinary tract infection, failure to thrive, an inability to regain preinjury level of function, and possibly . The patient and their family understand these potential complications and also awknowledge that other less common complications are possible. They provided both their verbal and written consent to go forward with operative fixation of their hip fracture with an intramedullary hip screw. Description of Procedure: The patient was identified in preoperative holding and the correct operative extremity was marked with my initials. I reviewed the consent form with the patient and their family and all of their questions were answered. The patient was then brought back to the operating room by anesthesia. Anesthesia, preoperative antibiotics, and tranexamic acid were given by the anesthesia team while on the [facility]. Both ankles were padded with webril and boots for the [place] table were applied. The patient was then carefully transferred onto the [place] table. A perineal post was immediately placed. The contralateral arm was secured on a well-padded arm clements. The ipsilateral arm was draped across the chest and secured with a pillow, foam, and paper tape to allow access to the proximal femur. Nonsterile drapes were applied to the operative extremity. The height of the table was elevated and the contralateral extremity was dropped towards the floor to facilitate imaging. A timeout was performed identifying the correct patient, operative extremity, and procedure. Fluoroscopy was brought in to assess the fracture. A provisional reduction was performed using longitudinal traction, adduction, and internal rotation. An AP and lateral view were obtained to assess the reduction. The operative extremity was then prepped and draped in the standard sterile fashion. A straight incision was made at the tip of the greater trochanter and extended proximally for 3 cm. Skin and subcutaneous tissues were incised sharply. The underlying fascia was incised in line with the skin incision. An awl was placed just medial to the tip of the greater trochanter on the AP view and colinear with the canal on the lateral view. A 3.2 mm guide pin was then advanced into the proximal femur. The position of the guidepin was verified with fluoroscopy. An opening reamer and soft tissue cannula were placed over the guidepin and used to open the proximal femur to the level of the lesser trochanter. The 3.2 mm guide pin and opening reamer were removed. A short gamma nail was dispensed, hooked up to the targeting arm and I verified that the trochar through the targeting arm lined up with the slots on the nail. The nail was then impacted into the proximal femur until the appropriate depth had been reached. A small stab incision was made over the lateral aspect of the femur using the targeting arm as a reference for the lag screw. Incision was carried down to the skin and fascia down to the lateral cortex of the femur. The trocar was then placed up to the lateral cortex of the femur and a guidepin was placed in the low center position on the AP view and centered in the femoral head on the lateral view. Once the position of the guidewire was verified, we reamed to appropriate depth and placed a lag screw over the guidewire and into the femoral head. The position of the lag screw was assessed with fluoroscopy. The guidewire was then removed from the femoral head. The set screw was placed proximally, brought fully down and then released a quarter turn to allow compression. A final stab incision was made over the lateral femur at the site of the distal interlocking screw, again using the targeting arm as a reference. The trocar and sleeve were placed to the lateral cortex of the femur. We then drilled and placed a distal interlocking screw. Final fluoroscopic images were taken showing excellent reduction of the fracture and appropriate position of the implants. All wounds were thoroughly irrigated and closed in layers. Sterile dressings were applied. The drapes were taken down, the patient was transferred off the [place] table, and was brought to recovery having tolerated the procedure well. Citlail Parks PA-C was required as a skilled historian research assistant for patient positioning, retraction, placement of implants, closure of wounds, and application of dressings. PLAN: The patient can weight-bear as tolerated on their operative extremity. 2 doses of postoperative antibiotics. DVT prophylaxis with aspirin 81 mg twice a day starting the day of surgery. Dressing change on postoperative day #2. Appreciate Internal Medical assistance with perioperative medical management. Discharge planning in process.
--- NOTE | 2022-08-27 19:38 | XR ---
Intraoperative/procedural fluoroscopic services were provided for right hip gamma nail. Total fluoros copy time is 1 minute 23 seconds with a total of 4 submitted images to PACS. Total DAP 5.0030 Gycm2. Please see the operative note for further details.
[2022-08-27 20:37] LABS: Basophils % (A) 0 %; Eosinophils # (A) 0.1 k/uL (0-0.7); Eosinophils % (A) 1 %; HCT 36.1 % (34.0-46.0); HGB 11.7 gm/dL (11.4-16.0); Lymphocytes # (A) 0.5 k/uL (1.0-4.8); Lymphocytes % (A) 3 %; MCH 31.5 pg (25.0-35.0); MCHC 32.4 g/dL (31.0-37.0); MCV 97.1 fL (80.0-100.0); Monocytes # (A) 0.7 k/uL (0-1.0); Monocytes % (A) 5 %; Neutrophils # (A) 12.8 k/uL (1.3-7.7); Neutrophils % (A) 91 %; Platelet Count 270 k/uL (150-450); RBC 3.72 m/uL (3.80-5.40); RDW 12.9 % (11.5-15.5); WBC 14.1 k/uL (3.8-10.6)
[2022-08-27] MEDS: SENNOSIDES-DOCUSATE SODIUM 1 EACH TAB PO SCH (21:19)
[2022-08-27] MEDS: QUEtiapine 25 MG TAB PO SCH (21:19)
[2022-08-28] MEDS: HYDROcodone/APAP 5-325MG 1 EACH TAB PO PRN ×3 (03:35→19:45)
[2022-08-28] MEDS: ATORVASTATIN 10 MG TAB PO SCH (08:08)
[2022-08-28] MEDS: PANTOPRAZOLE 40 MG TABLET PO SCH (08:08)
[2022-08-28] MEDS: CHOLECALCIFEROL 25 MCG (1000 IU) TABLET PO SCH (08:08)
[2022-08-28] MEDS: ASPIRIN 81 MG PO SCH ×3 (08:08→19:45)
[2022-08-28] MEDS: FERROUS SULFATE 325 MG TAB PO SCH (08:09)
--- NOTE | 2022-08-28 11:49 | P.PN ---
Subjective Progress Note Date: 08/28/22 This patient is an 81- year old female who is status-post operative fixation of right intertrochanteric hip fracture with short intramedullary hip screw on 08/27/22. Today is post-op day #1. Patient is examined bedside with Dr. Whitley. She is resting comfortably. There are no complaints. Objective - Vital Signs Vital signs: Vital Signs Temp 97.5 F L 08/28/22 08:00 Pulse 86 08/28/22 08:00 Resp 18 08/28/22 08:00 BP 112/53 08/28/22 08:00 Pulse Ox 100 08/28/22 08:00 FiO2 Intake & Output 08/27/22 08/28/22 08/28/22 18:59 06:59 18:59 Intake Total 650 200 Output Total 100 800 250 Balance 550 -800 -50 Intake: IV 650 Oral 200 Output: Urine 50 800 250 Uretheral (Anderson) 250 Estimated Blood Loss 50 Other: Voiding Method Indwelling Catheter Indwelling Catheter Indwelling Catheter - Exam On examination, patient is resting in bed in no acute distress. She is alert and answers questions appropriately. On inspection of the right hip, there are clean, dry, intact surgical dressings in place. Mild swelling of the thigh, thigh is soft and compressible. Motor and sensory function intact RLE. RLE warm and well perfused. - Labs CBC & Chem 7: 08/27/22 20:15 08/27/22 07:51 Labs: Abnormal Lab Results - Last 24 Hours (Table) 08/27/22 Range/Units 20:15 WBC 14.1 H (3.8-10.6) k/uL RBC 3.72 L (3.80-5.40) m/uL Neutrophils # 12.8 H (1.3-7.7) k/uL Lymphocytes # 0.5 L (1.0-4.8) k/uL Assessment and Plan Assessment: Status-post operative fixation of right intertrochanteric hip fracture with short intramedullary hip screw on 08/27/22. Post-op day #1. Plan: - Weight bear to tolerance on operative extremity with a walker. Up with assistance. - Physical therapy to increase mobilization. - Leave operative dressings in place. - Pain medication as needed. - Aspirin 81mg BID for DVT prophylaxis. - Medical management per internal medicine, cardiology. - Case management consulted for discharge planning. Anticipate discharge to rehab.
--- NOTE | 2022-08-28 13:17 | P.PN ---
Subjective Progress Note Date: 08/28/22 patient is a 81-year-old lady with past medical history significant for GERD, hyperlipidemia who presented to the ER after a fall. Patient stated that this morning while getting up from her bed she felt lightheaded and lost her balance and fell on her right side. Patient did not lose her consciousness. Patient was found by her neighbor and EMS was called and was brought to the ER Initial lab work done in the ER showed white count of 16.9, hemoglobin 14.5, platelet count 304, sodium 137, potassium 4.7, chloride 101, carbonate site 24, BUN 22, creatinine 0.63, initial troponin was elevated at 0.429 X-ray of the right hip showed right proximal femur fracture. Patient was admitted to orthopedic service 08/26. Patient seen and examined. Patient is very agitated, confused, trying to get out of the bed and walk on her broken hip. Patient given Ativan for agitation, doing much better afterwards 08/27. Patient seen and examined. Patient no longer stated, patient is cooperative. Currently nothing by mouth waiting on surgery 08/28. Patient seen and examined. Had surgery yesterday, currently working with PT and OT PHYSICAL EXAMINATION: GENERAL: The patient is alert to self, , not in any acute distress. Well developed, well nourished. HEENT: Pupils are round and equally reacting to light. EOMI. No scleral icterus. No conjunctival pallor. Normocephalic, atraumatic. No pharyngeal erythema. No thyromegaly. CARDIOVASCULAR: S1 and S2 present. No murmurs, rubs, or gallops. PULMONARY: Chest is clear to auscultation, no wheezing or crackles. ABDOMEN: Soft, nontender, nondistended, normoactive bowel sounds. No palpable organomegaly. MUSCULOSKELETAL: Right hip surgical incision seen EXTREMITIES: No cyanosis, clubbing, or pedal edema. NEUROLOGICAL: Gross neurological examination did not reveal any focal deficits. SKIN: No rashes. Assessment and plan Right hip fracture Fall Elevated troponin Acute delirium Monitor vital signs Monitor CBC Monitor CMP Status post short intramedullary hip screw on 08/27/22 2-D echo reviewed by cardiology, recommend outpatient follow-up Continue pain management per orthopedic DC IV fluids Continue Seroquel. Continue DVT prophylaxis per orthopedics Follow-up and PT and OT recommendations DVT prophylaxis: Objective - Vital Signs Vital signs: Vital Signs Temp 97.5 F L 08/28/22 08:00 Pulse 86 08/28/22 08:00 Resp 18 08/28/22 08:00 BP 112/53 08/28/22 08:00 Pulse Ox 100 08/28/22 08:00 FiO2 Intake & Output 08/27/22 08/28/22 08/28/22 18:59 06:59 18:59 Intake Total 650 200 Output Total 100 800 250 Balance 550 -800 -50 Intake: IV 650 Oral 200 Output: Urine 50 800 250 Uretheral (Anderson) 250 Estimated Blood Loss 50 Other: Voiding Method Indwelling Catheter Indwelling Catheter Indwelling Catheter - Labs CBC & Chem 7: 08/27/22 20:15 08/27/22 07:51 Labs: Abnormal Lab Results - Last 24 Hours (Table) 08/27/22 Range/Units 20:15 WBC 14.1 H (3.8-10.6) k/uL RBC 3.72 L (3.80-5.40) m/uL Neutrophils # 12.8 H (1.3-7.7) k/uL Lymphocytes # 0.5 L (1.0-4.8) k/uL
[2022-08-28] MEDS ORDERED: TAMSULOSIN 0.4 MG CAP.ER.24H PO SCH (18:30)
[2022-08-28] MEDS: SENNOSIDES-DOCUSATE SODIUM 1 EACH TAB PO SCH (19:45)
[2022-08-28] MEDS: QUEtiapine 25 MG TAB PO SCH (19:45)
[2022-08-29] MEDS: ASPIRIN 81 MG PO SCH ×2 (09:29→09:34)
[2022-08-29] MEDS: CHOLECALCIFEROL 25 MCG (1000 IU) TABLET PO SCH (09:34)
[2022-08-29] MEDS: PANTOPRAZOLE 40 MG TABLET PO SCH (09:34)
[2022-08-29] MEDS: HYDROcodone/APAP 5-325MG 1 EACH TAB PO PRN (09:35)
[2022-08-29] MEDS: ATORVASTATIN 10 MG TAB PO SCH (09:35)
--- NOTE | 2022-08-29 10:36 | P.DS ---
Providers Date of admission: 08/25/22 13:20 Expected date of discharge: 08/29/22 Attending physician: Gil Whitley Consults: 08/25/22 12:06 Consult Physician Routine Consulting Provider: Bhaskar Britt Consult Reason/Comments: Pre-Op clearance Do you want consulting provider notified?: Yes 08/25/22 13:21 Consult Physician Routine Consulting Provider: Elian Lazar Consult Reason/Comments: Medical clearance for surgery Do you want consulting provider notified?: Yes Primary care physician: Verito BatesClarion Hospital Course: This patient is an 81-year-old female who sustained a ground-level fall on 08/25/22. X-rays in the emergency department revealed a right intertrochanteric hip fracture. Patient was admitted under the care on Dr. Whitley for surgical intervention with a consult placed an internal medicine for preoperative medical clearance. A cardiology consult was also placed for pre-op medical evaluation. Patient underwent operative fixation of right intertrochanteric hip fracture with intramedullary hip screw and 08/27/22. The procedure was performed without complication or sequelae. Vital signs and labs are stable on postoperative day #2. Patient is examined bedside this morning with Dr. Whitley. She has no new complaints. She is resting comfortably in bed. On examination, patient is resting in bed in no apparent distress. She is alert and answers questions appropriately. On inspection of the right hip, there is a clean, dry, intact surgical dressings in place. Motor and sensory function is intact of the right lower extremity. Right lower extremity is warm and well perfused. Calf is nontender. Patient is discharged to rehab today, pending medical clearance. Please see med rec for accurate list of discharge medications. She should follow-up in the office in 2 weeks at [facility]. Plan - Discharge Summary New Discharge Prescriptions: No Action Atorvastatin [Lipitor] 10 mg PO DAILY Ferrous Sulfate [Feosol] 325 mg PO DAILY Pantoprazole Sodium [Protonix] 40 mg PO DAILY Cholecalciferol [Vitamin D3 (25 Mcg = 1000 Iu)] 25 mcg PO DAILY Discharge Medication List Atorvastatin [Lipitor] 10 mg PO DAILY 03/08/17 [History] Ferrous Sulfate [Feosol] 325 mg PO DAILY 06/10/18 [History] Pantoprazole Sodium [Protonix] 40 mg PO DAILY 02/03/19 [History] Cholecalciferol [Vitamin D3 (25 Mcg = 1000 Iu)] 25 mcg PO DAILY 08/25/22 [History] Follow up Appointment(s)/Referral(s): Verito Middleton III, MD [Primary Care Provider] - 1-2 days
[2022-08-29 12:42] VITALS: BP 108/55; PULSE 62; RESP 17; TEMP 97.4
--- NOTE | 2022-08-29 12:58 | P.PN ---
Subjective Progress Note Date: 08/29/22 patient is a 81-year-old lady with past medical history significant for GERD, hyperlipidemia who presented to the ER after a fall. Patient stated that this morning while getting up from her bed she felt lightheaded and lost her balance and fell on her right side. Patient did not lose her consciousness. Patient was found by her neighbor and EMS was called and was brought to the ER Initial lab work done in the ER showed white count of 16.9, hemoglobin 14.5, platelet count 304, sodium 137, potassium 4.7, chloride 101, carbonate site 24, BUN 22, creatinine 0.63, initial troponin was elevated at 0.429 X-ray of the right hip showed right proximal femur fracture. Patient was admitted to orthopedic service 08/26. Patient seen and examined. Patient is very agitated, confused, trying to get out of the bed and walk on her broken hip. Patient given Ativan for agitation, doing much better afterwards 08/27. Patient seen and examined. Patient no longer stated, patient is cooperative. Currently nothing by mouth waiting on surgery 08/28. Patient seen and examined. Had surgery yesterday, currently working with PT and OT 08/29. Patient seen and examined. No acute issues overnight. Vital signs s table. Patient medically stable for discharge PHYSICAL EXAMINATION: GENERAL: The patient is alert to self, , not in any acute distress. Well developed, well nourished. HEENT: Pupils are round and equally reacting to light. EOMI. No scleral icterus. No conjunctival pallor. Normocephalic, atraumatic. No pharyngeal erythema. No thyromegaly. CARDIOVASCULAR: S1 and S2 present. No murmurs, rubs, or gallops. PULMONARY: Chest is clear to auscultation, no wheezing or crackles. ABDOMEN: Soft, nontender, nondistended, normoactive bowel sounds. No palpable organomegaly. MUSCULOSKELETAL: Right hip surgical incision seen EXTREMITIES: No cyanosis, clubbing, or pedal edema. NEUROLOGICAL: Gross neurological examination did not reveal any focal deficits. SKIN: No rashes. Assessment and plan Right hip fracture Fall Elevated troponin Acute delirium Monitor vital signs Monitor CBC Monitor CMP Status post short intramedullary hip screw on 08/27/22 Continue DVT prophylaxis per orthopedics PT and OT recommended rehab, Objective - Vital Signs Vital signs: Vital Signs Temp 97.4 F L 08/29/22 12:00 Pulse 62 08/29/22 12:00 Resp 17 08/29/22 12:00 BP 108/55 08/29/22 12:00 Pulse Ox 94 L 08/29/22 12:00 FiO2 Intake & Output 08/28/22 08/29/22 08/29/22 18:59 06:59 18:59 Intake Total 720 440 Output Total 750 600 Balance -30 -600 440 Intake: Oral 720 440 Output: Urine 750 600 Straight 500 Uretheral (Anderson) 250 Other: Voiding Method Indwelling Catheter External Catheter External Catheter # Bowel Movements 0 - Labs CBC & Chem 7: 08/27/22 20:15 08/27/22 07:51 Labs: Abnormal Lab Results - Last 24 Hours (Table) 08/28/22 Range/Units 08:24 Vitamin D 25-Hydroxy 20.2 L (30.0-100.0) ng/mL
== END 2022-08-29 16:27 | DRG 481 ==
LOC: EC 10:18 → 4SSUR 13:20 → 3SCARD 13:55
PROVIDERS: ADMIT Orthopaedic Surgery; ATTEND Orthopaedic Surgery
PROC: 0QS606Z Reposition Right Upper Femur with Intramedullary Internal Fixation Device, Open Approach (ICD-10-PCS; principal; 2022-08-27 09:40)
DX: S72.141A Displaced intertrochanteric fracture of right femur, initial encounter for closed fracture (principal); F03.911 Unspecified dementia, unspecified severity, with agitation; I5A Non-ischemic myocardial injury (non-traumatic); S09.90XA Unspecified injury of head, initial encounter; I70.0 Atherosclerosis of aorta; I65.29 Occlusion and stenosis of unspecified carotid artery; I35.1 Nonrheumatic aortic (valve) insufficiency; E78.5 Hyperlipidemia, unspecified; I25.10 Atherosclerotic heart disease of native coronary artery without angina pectoris; H91.90 Unspecified hearing loss, unspecified ear; K21.9 Gastro-esophageal reflux disease without esophagitis; F17.210 Nicotine dependence, cigarettes, uncomplicated; R77.8 Other specified abnormalities of plasma proteins; M81.0 Age-related osteoporosis without current pathological fracture; Z86.19 Personal history of other infectious and parasitic diseases; Z79.899 Other long term (current) drug therapy; Z91.81 History of falling; W01.190A Fall on same level from slipping, tripping and stumbling with subsequent striking against furniture, initial encounter; Y93.89 Activity, other specified; Y92.023 Bedroom in mobile home as the place of occurrence of the external cause
CPT/HCPCS: 36415; 71045; 73502; 80053; 81001; 82306; 83735; 84484; 85025; 85610; 85730; 93005; 93306; 94760; 99285

== ENCOUNTER 2022-10-19 11:55 | Emergency (ER) | payer MEDICARE, BC ==
[2022-10-19 12:13] VITALS: TEMP 98.3
--- NOTE | 2022-10-19 12:34 | ED ---
General Adult HPI - General Chief complaint: Shortness of Breath Stated complaint: SOB Time Seen by Provider: 10/19/22 12:04 Source: EMS Mode of arrival: EMS Limitations: altered mental status - History of Present Illness Initial comments: Dictation was produced using [employer] dictation software. please excuse any grammatical, word or spelling errors. 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 Patient is diagnosed COVID-19 one week ago. Patient unable to provide history present illness. According to nurse received report from EMS patient was found to be hypoxic at the halfway today. She was placed on 4 L nasal cannula. EMS was called to transfer patient to the ER. By the time EMS arrived patient's saturations of oxygen were above 90%. Patient unable to provide his present illness Mrs. Campbell that it's due to her baseline mentation. Some history is obtained from patient's son over the phone. States that patient is diagnosed Covid one week ago. She is normally demented. He does confirm that patient is a DO NOT RESUSCITATE. He request that patient be evaluated and sent home if she is stable. Unable to obtain ROS secondary to patient's mental status - Related Data Home Medications Medication Instructions Recorded Confirmed Atorvastatin [Lipitor] 10 mg PO DAILY 03/08/17 08/25/22 Ferrous Sulfate [Iron (65 MG 325 mg PO DAILY 06/10/18 08/25/22 Elemental)] Pantoprazole Sodium [Protonix] 40 mg PO DAILY 02/03/19 08/25/22 Cholecalciferol [Vitamin D3 (25 25 mcg PO DAILY 08/25/22 08/25/22 Mcg = 1000 Iu)] Previous Rx's Medication Instructions Recorded Aspirin 81 mg PO BID 30 Days #60 tab 08/29/22 Docusate [Colace] 100 mg PO BID #60 capsule 08/29/22 HYDROcodone/APAP 5-325MG [[place] 1 tab PO Q6HR PRN 7 Days #28 tab 08/29/22 5-325] Tamsulosin [Flomax] 0.4 mg PO PC-SUPPER #30 cap 08/29/22 Allergies Allergy/AdvReac Type Severity Reaction Status Date / Time No Known Allergies Allergy Verified 08/25/22 12:19 Review of Systems ROS Statement: Those systems with pertinent positive or pertinent negative responses have been documented in the HPI. ROS Other: All systems not noted in ROS Statement are negative. Past Medical History Past Medical History: GERD/Reflux, Hearing Disorder / Deafness, Hyperlipidemia Additional Past Medical History / Comment(s): hx stomach ulcers, h pylori History of Any Multi-Drug Resistant Organisms: None Reported Past Surgical History: Hysterectomy Additional Past Surgical History / Comment(s): eye surg. years ago, carotid endarterectomy Past Anesthesia/Blood Transfusion Reactions: No Reported Reaction Past Psychological History: No Psychological Hx Reported Smoking Status: Current every day smoker Past Alcohol Use History: None Reported Past Drug Use History: None Reported - Past Family History Father Family Medical History: Cancer Sister(s) Family Medical History: Cancer Brother(s) Family Medical History: Cancer General Exam - General Exam Comments Initial Comments: PHYSICAL EXAM: General Impression: Alert, not in acute distress HEENT: Normocephalic atraumatic, extra-ocular movements intact, pupils equal and reactive to light bilaterally, mucous membranes moist. Cardiovascular: Heart regular rate and rhythm Chest: Able to complete full sentences, no retractions, no tachypnea Abdomen: abdomen soft, non-tender, non-distended, no organomegaly Musculoskeletal: Pulses present and equal in all extremities, no peripheral edema Motor: no focal deficits noted Neurological: CN II-XII grossly intact, no focal motor or sensory deficits noted Skin: Intact with no visualized rashes Limitations: altered mental status Course Vital Signs 10/19/22 10/19/22 10/19/22 12:02 12:13 14:00 Temperature 98.3 F Pulse Rate 71 70 Respiratory 20 20 18 Rate Blood Pressure 100/66 102/74 O2 Sat by Pulse 96 94 L Oximetry - Reevaluation(s) Reevaluation #1: 10/19/22 12:33 Goals of care discussed in detail with patient's son, Brandon. Brandon requested patient be evaluated and if she is clinically stable to have her discharged back to the halfway. Patient's oxygen was discontinued. She is satting 94-96% on room air. Patient not showing any signs of respiratory distress. EKG Findings - EKG Comments: EKG Findings:: My EKG interpretation: Ventricular rate 72, sinus rhythm, MS interval 55, QRS 70, QTC 398. No MS prolongation, no QTC prolongation, no ST or T-wave changes noted. Overall, this EKG is unremarkable Medical Decision Making - Medical Decision Making Was pt. sent in by a medical professional or institution (, MERRICK, ADDRESS CHANGE CLERK, urgent care, hospital, or halfway...) When possible be specific @ -No Did you speak to anyone other than the patient for history (EMS, parent, family, police, friend...)? What history was obtained from this source @ -As above Did you review nursing and triage notes (agree or disagree)? Why? @ -I reviewed and agree with nursing and triage notes Were old charts reviewed (outside hosp., previous admission, EMS record, old E KG, old radiological studies, urgent care reports/EKG's, halfway records)? Report findings @ -No old charts were reviewed Differential Diagnosis (chest pain, altered mental status, abdominal pain women, abdominal pain men, vaginal bleeding, musculoskeletal, weakness, fever, dyspnea, syncope, headache, dizziness, GI bleed, back pain, seizure, CVA, palpatations, mental health)? @ -Differential Dyspnea: Coronary syndrome, arrhythmia, tamponade, asthma, COPD, pulmonary embolism, pneumonia, pneumothorax, pulmonary effusion, anaphylaxis, diabetic ketoacidosis, flailed chest, pulmonary contusion, diaphragmatic rupture, anemia, neuromu scular, this is not meant to be an all-inclusive list. EKG interpreted by me (3pts min.). @ -seee above X-rays interpreted by me (1pt min.). @ -No acute processes seen on chest x-ray CT interpreted by me (1pt min.). @ -None done U/S interpreted by me (1pt. min.). @ -None done What testing was considered but not performed or refused? (CT, X-rays, U/S, labs)? Why? @ -None What meds were considered but not given or refused? Why? @ -None Did you discuss the management of the patient with other professionals (professionals i.e. MERRICK Haro, ADDRESS CHANGE CLERK, lab, RT, psych nurse, director social service, turner machine operator, teacher, state wildlife officer, family service caseworker)? Give summary @ -No Was smoking cessation discussed for >3mins.? @ -No Was critical care preformed (if so, how long)? @ -No Were there social determinants of health that impacted care today? How? (Homelessness, low income, unemployed, alcoholism, drug addiction, transportation, low edu. Level, literacy, decrease access to med. care, retirement, rehab)? @ -No Was there de-escalation of care discussed even if they declined (Discuss DNR or withdrawal of care, Hospice)? DNR status @ -No What co-morbidities impacted this encounter? (DM, HTN, Smoking, COPD, CAD, Cancer, CVA, ARF, Chemo, Hep., AIDS, mental health diagnosis, sleep apnea, morb id obesity)? @ -None Was patient admitted / discharged? Hospital course, mention meds given and route, prescriptions, significant lab abnormalities, going to OR and other pertinent info. @ -81 Year old female presents to the ER for alleged hypoxia. Vital signs upon arrival shows well-appearing female with no acute respiratory distress or any distress whatsoever. 96% on room air. Suspect that patient had erroneous reading was at halfway. Without supplemental oxygen with adequately placed pulse oximeter to the finger and good waveforms patient is not hypoxic. Patient be discharged. Patient is still positive for COVID-19. Undiagnosed new problem with uncertain prognosis? @ -No Drug Therapy requiring intensive monitoring for toxicity (Heparin, Nitro, Insulin, Cardizem)? @ -No Were any procedures done? @ -No Diagnosis/symptom? Acute, or Chronic, or Acute on Chronic? Uncomplicated (without systemic symptoms) or Complicated (systemic symptoms)? @ -1. COVID-19 Side effects of treatment? @ -No Exacerbation, Progression, or Severe Exacerbation? @ -No Poses a threat to life or bodily function? How? (Chest pain, USA, IA, pneumonia, PE, COPD, DKA, ARF, appy, cholecystitis, CVA, Diverticulitis, Homicidal, Suicidal, threat to staff... and all critical care pts) @ -No - Lab Data Result diagrams: 10/19/22 14:27 10/19/22 14:27 Lab Results 10/19/22 10/19/22 10/19/22 Range/Units 13:09 14:27 14:27 WBC 5.0 (3.8-10.6) k/uL RBC 4.45 (3.80-5.40) m/uL Hgb 12.1 (11.4-16.0) gm/dL Hct 38.4 (34.0-46.0) % MCV 86.3 D (80.0-100.0) fL MCH 27.3 (25.0-35.0) pg MCHC 31.6 (31.0-37.0) g/dL RDW 15.6 H (11.5-15.5) % Plt Count 292 (150-450) k/uL MPV 8.0 Neutrophils % 65 % Lymphocytes % 25 % Monocytes % 8 % Eosinophils % 0 % Basophils % 0 % Neutrophils # 3.2 (1.3-7.7) k/uL Lymphocytes # 1.3 (1.0-4.8) k/uL Monocytes # 0.4 (0-1.0) k/uL Eosinophils # 0.0 (0-0.7) k/uL Basophils # 0.0 (0-0.2) k/uL Hypochromasia Slight Sodium 137 (137-145) mmol/L Potassium 4.8 (3.5-5.1) mmol/L Chloride 106 (98-107) mmol/L Carbon Dioxide 17 L (22-30) mmol/L Anion Gap 14 mmol/L BUN 27 H (7-17) mg/dL Creatinine 0.86 (0.52-1.04) mg/dL Est GFR (CKD-EPI)AfAm 73 (>60 ml/min/1.73 sqM) Est GFR (CKD-EPI)NonAf 63 (>60 ml/min/1.73 sqM) Glucose 113 H (74-99) mg/dL Calcium 9.2 (8.4-10.2) mg/dL Coronavirus (PCR) Detected A (Not Detectd) Disposition Clinical Impression: COVID-19 Disposition: HOME SELF-CARE Instructions (If sedation given, give patient instructions): COVID-19 and Chr onic Health Conditions (ED) Is patient prescribed a controlled substance at d/c from ED?: No Referrals: Verito Middleton III, MD [STAFF PHYSICIAN] - 1-2 days Time of Disposition: 15:17
--- NOTE | 2022-10-19 14:37 | XR ---
EXAMINATION TYPE: XR chest 1V DATE OF EXAM: 10/19/2022 HISTORY: Shortness of breath. COMPARISON: 08/25/2022 TECHNIQUE: Single view of the chest is submitted. FINDINGS: Demonstrated are scattered senescent parenchymal change. There is no evidence for focal infiltrate. The heart is stable. Hilar and mediastinal structures are within normal limits. Degenerative changes are seen of the dorsal spine. IMPRESSION: 1. Chronic changes without evidence for acute pulmonary disease.
[2022-10-19 14:53] VITALS: BP 102/74; PULSE 70; RESP 18
[2022-10-19 14:56] LABS: Basophils % (A) 0 %; Eosinophils % (A) 0 %; HCT 38.4 % (34.0-46.0); HGB 12.1 gm/dL (11.4-16.0); Hypochromasia Slight; Lymphocytes # (A) 1.3 k/uL (1.0-4.8); Lymphocytes % (A) 25 %; MCH 27.3 pg (25.0-35.0); MCHC 31.6 g/dL (31.0-37.0); Monocytes # (A) 0.4 k/uL (0-1.0); Monocytes % (A) 8 %; Neutrophils # (A) 3.2 k/uL (1.3-7.7); Neutrophils % (A) 65 %; Platelet Count 292 k/uL (150-450); RBC 4.45 m/uL (3.80-5.40); RDW 15.6 % (11.5-15.5)
[2022-10-19 15:07] LABS: African American GFR (CKD) 73 (>60 ml/min/1.73 sqM); Anion Gap 14 mmol/L; Blood Urea Nitrogen 27 mg/dL (7-17); Calcium 9.2 mg/dL (8.4-10.2); Carbon Dioxide 17 mmol/L (22-30); Chloride 106 mmol/L (98-107); Glucose 113 mg/dL (74-99); Non-African American GFR(CKD) 63 (>60 ml/min/1.73 sqM); Potassium 4.8 mmol/L (3.5-5.1); Sodium 137 mmol/L (137-145)
[2022-10-19 15:12] LABS: MCV 86.3 fL (80.0-100.0)
== END 2022-10-19 19:21 | disposition home or self-care (01) ==
LOC: EC 11:55
DX: U07.1 COVID-19 (principal); K21.9 Gastro-esophageal reflux disease without esophagitis; E78.5 Hyperlipidemia, unspecified; F17.200 Nicotine dependence, unspecified, uncomplicated; Z79.899 Other long term (current) drug therapy
CPT/HCPCS: 36415; 71045; 80048; 85025; 87635; 93005; 99285